=== PATIENT | female | born 1950 | race Caucasian/White ===

== ENCOUNTER 2019-03-21 08:32 | Outpatient (CLI) | payer MEDICARE, OTHER, SELFPAY ==
--- NOTE | 2019-03-21 08:54 | XR_ITS ---
WS: [id number] Sacroiliac joints, 3 views, 03/21/2019 Clinical Data: BACK PAIN, ACUTE Comparison: None. Findings: The SI joints are normal in width. No erosion, sclerosis or destruction is seen. There are no fractur es or dislocations. The adjacent visualized pelvis and hips are unremarkable. The pubic symphysis is unremarkable. The hi ps are normal. XR/XR sacroiliac jts m 3V [id number] Impression: Negative SI joints.
== END 2019-03-21 08:33 | disposition home or self-care (01) ==
LOC: RAD 08:41
PROVIDERS: Family Provider Family Medicine; PCP Family Medicine; Visit Provider Family Medicine
DX: M54.89 Other dorsalgia (principal)
CPT/HCPCS: 72202

== ENCOUNTER 2019-03-29 10:43 | Outpatient (CLI) | payer MEDICARE, OTHER, SELFPAY ==
--- NOTE | 2019-03-29 11:04 | XR_ITS ---
WS: [id number] DEXA (DUAL ENERGY X-RAY ABSORPTIOMETRY) Bone mineral density was performed using a [employer] machine. HISTORY: OSTEOPOROSIS, BACK PAIN COMPARISON: 05/08/2014 Lumbar spine BMD (L1-L4): 0.931 g/cm2 T score: -2.1 Z score: -0.1 Total hip BMD: Left: 0.640 g/cm2. T score: -2.9 Z score: -1.2 Right: 0.659 g/cm2. T score: -2.8 Z score: -1.1 10 year probability of a major osteoporotic fracture is 16%. Compared to the prior study from 05/08/2014. Lumbar spine bone mineral density has increased by 1.7%. Bilateral hips bone mineral density has decrease by 4.1%. XR/XR DEXA axial skeleton* 10381 IMPRESSION: OSTEOPOROSIS based upon the WHO classification for females. Significant decrease in bone mineral density within the hips since the prior st y. No significant change in the lumbar spine bone mineral density.
== END 2019-03-29 10:44 | disposition home or self-care (01) ==
LOC: RADWPI 10:50
PROVIDERS: Family Provider Family Medicine; PCP Family Medicine; Visit Provider Family Medicine
DX: M81.0 Age-related osteoporosis without current pathological fracture (principal); Z78.0 Asymptomatic menopausal state; M54.9 Dorsalgia, unspecified
CPT/HCPCS: 77080

== ENCOUNTER 2019-07-10 11:08 | Emergency (ER) | payer MEDICARE, OTHER, SELFPAY ==
--- NOTE | 2019-07-10 11:14 | XR_ITS ---
WS: [id number] XR ankle RT min 3V* [id number] REASON FOR EXAM: injury FINDINGS: The ankle mortise was normal. No definite fractures of the tibia, fibula, or talus. There is marked soft tissue swelling over the lateral malleolus. The posterior shelf of the tibia was normal. XR/XR ankle RT min 3V* [id number] IMPRESSION: Marked soft tissue swelling of the ankle. Laterally
[2019-07-10 11:19] VITALS: BP 209/107; PULSE 67; RESP 17; TEMP 37.3; O2SAT 95; BMI 23.8
--- NOTE | 2019-07-10 11:23 | W.ED.FALL ---
HPI - Fall General: Chief Complaint: Extremity Injury, Lower Stated Complaint: RIGHT ANKLE PAIN Time Seen by Provider: 07/10/19 11:18 Source: patient Mode of arrival: ambulatory Limitations: no limitations History of Present Illness: HPI Narrative: 69-year-old female who states she tripped while outside cleaning her porch. She states she twisted her right ankle and has quite a bit of swelling that ankle along with pain. States her pain is sharp in nature and rates it a 7 out of 10. Denies any other injuries. MD complaint: fall Onset (ago): hour(s) Fall witnessed: no Place fall occurred: home Loss of consciousness: None Symptoms prior to fall: none Context: tripped/slipped Associated symptoms-after fall: Denies abdominal pain, chest pain or headache(s) Review of Systems Const: Denies: fever(s), chills, body aches or change in appetite Eyes: Denies: blurry vision or eye discomfort ENMT: Denies: throat pain or dental pain Card: Denies: chest pain Resp: Denies: dyspnea GI: Denies: abdominal pain, nausea, vomiting or diarrhea : Denies: dysuria Musc: Reports: joint pain Skin/Breast: Denies: rash Neuro: Denies: headache(s) Psych: Denies: depression Sinan/Lymph: Denies: easy bruising All/Imm: Denies: urticaria PFSH ED PFSH: Social History Smoking and tobacco status: never smoked Physical Exam Const: COMMON NORMALS: no acute distress, patient oriented x3 and healthy appearing HENMT: COMMON NORMALS: normocephalic and atraumatic HEAD & SCALP: normocephalic and atraumatic Eye: COMMON NORMALS: Equal, round and reactive pupils present and EOMs intact bilaterally PUPIL: Yes Equal, round and reactive pupils present Neck/C-Spine: COMMON NORMALS: full ROM and supple Chest: COMMONS NORMALS: normal inspection of the chest and normal palpation of entire chest wall Resp: COMMON NORMALS: normal respiratory effort, No retractions, No use of accessory muscles and clear to auscultation bilaterally AUSCULTATION: clear to auscultation bilaterally Cardio: COMMON NORMALS: regular rate, regular rhythm and No murmurs present (Cardio) RATE: regular rate RHYTHM: regular rhythm GI: COMMON NORMALS: Normal to inspection, nondistended, normoactive bowel sounds present, Soft to palpation, non-tender and no masses PALPATION: Yes Soft to palpation Extremity: COMMON NORMALS: full ROM NARRATIVE EXTREMITY EXAM: Tenderness over right lateral ankle with swelling distal pulses intact Neuro: COMMON NORMALS: patient oriented x3, moves all extremities and no focal motor deficits Psych: COMMON NORMALS: mental status grossly normal, Normal thought process present and cooperative THOUGHT PROCESS: Normal thought process present Skin: COMMON NORMALS: no rashes or lesions noted and no wounds GENERAL SKIN EXAM: no rashes or lesions noted Course Vital Signs: Vital signs: Vital Signs Temperature 99.1 F 07/10/19 11:19 Pulse Rate 67 07/10/19 11:19 Respiratory Rate 17 07/10/19 11:19 Blood Pressure 209/107 07/10/19 11:19 Pulse Oximetry 95 07/10/19 11:19 MDM - Fall MDM Narrative: Medical decision making narrative: Patient presents here with an ankle sprain from a fall. Patient is quite tender and is unable to ambulate. Will place patient in a splint and she is to be nonweightbearing and follow-up with orthopedics. She is to return to the ER if worsening. She understands and agrees to the plan. Imaging Data^: X-ray right ankle: Attestation: I personally reviewed and interpreted this imaging study as follows: Radiologist's impression: Soft tissue swelling noted no obvious fracture Discharge Plan Discharge Patient Disposition: Home, Self-Care Clinical Impression: Ankle sprain and strain Condition: Stable Prescriptions: No Action clopidogrel 75 mg tablet 75 mg PO QDAY 90 Days Qty: 90 RF: 3 metoprolol tartrate 25 mg tablet 25 mg PO BID Qty: 180 RF: 3 lisinopril 20 mg tablet 20 mg PO BID Qty: 180 RF: 3 Discharge Orders: Discharge Order (Routine); Ordered 07/10/19 Ordered By: Milton Timmons Referrals: Corina Singletary MD [Physician] - 4-7 days Donovan Sprague MD [Primary Care Provider] - Discharge Diet: Advance as tolerated Discharge Activity: Resume usual activity Patient Instructions: Ankle Sprain (ED) Coding Level of Care Code ED Asphalt Paving Superintendent for g Fwd Exam Comprehensive
[2019-07-10] MEDS: HYDROcodone-acetaminophen 7.5-325 mg Tablet 1 TAB PO (12:15)
[2019-07-10 13:22] VITALS: BP 147/52; PULSE 63; RESP 18; O2SAT 94
--- NOTE | 2019-07-12 14:36 | DCPLANNER ---
manager rn case had message to schedule a follow up appointment for patient with ortho. manager rn case called the ortho clinic, spoke with Ne, gave clinic patients information. manager rn case was told that patients information would be printed and reviewed. Clinic will call major case detective and patient with appointment information.
--- NOTE | 2019-07-13 08:49 | DCPLANNER ---
Patient had an appointment scheduled for 07.13.19 with ortho, appointment has been cancelled.
== END 2019-07-10 13:26 | disposition home or self-care (01) ==
PROVIDERS: Emergency Provider Emergency Medicine; PCP Family Medicine
DX: S93.401A Sprain of unspecified ligament of right ankle, initial encounter (principal); S96.911A Strain of unspecified muscle and tendon at ankle and foot level, right foot, initial encounter; W18.40XA Slipping, tripping and stumbling without falling, unspecified, initial encounter; Z79.02 Long term (current) use of antithrombotics/antiplatelets
CPT/HCPCS: 12345; 29515; 73610; 99281; 99283

== ENCOUNTER 2019-07-17 15:35 | Outpatient (CLI) | payer MEDICARE, OTHER, SELFPAY ==
--- NOTE | 2019-07-17 15:48 | XR_ITS ---
WS: [id number] ANKLE RIGHT TECHNIQUE: 2 views of the right ankle CLINICAL INFORMATION: ANKLE PAIN RIGHT COMPARISON: July 10, 2019 FINDINGS: Moderate diffuse soft tissue edema. Well-corticated avulsion about the lateral malleolus likely chron ic. Normal talar dome. Partially visualized fracture involving the base of the fifth metatarsal. This can be further evaluated with foot radiographs. XR/XR ankle RT 2V [id number] IMPRESSION: 1. Moderate diffuse soft tissue edema. 2. Partially visualized fracture involving the base of the fifth metatarsal. T his is incompletely evaluated and recommend foot radiographs. 3. Well-corticated avulsion about the tip of the lateral malleolus unchanged.
== END 2019-07-17 15:36 | disposition home or self-care (01) ==
LOC: RADWPI 15:41
PROVIDERS: Family Provider Family Medicine; PCP Family Medicine; Visit Provider Family Medicine
DX: M25.571 Pain in right ankle and joints of right foot (principal); S92.351A Displaced fracture of fifth metatarsal bone, right foot, initial encounter for closed fracture; X58.XXXA Exposure to other specified factors, initial encounter
CPT/HCPCS: 73600

== ENCOUNTER → 2019-07-20 11:54 | Outpatient (BNVA) | payer MEDICARE, OTHER, SELFPAY | PROVIDERS: Family Provider Family Medicine; PCP Family Medicine; Referring Provider Family Medicine; Visit Provider Orthopaedic Surgery | DX: S92.351A Displaced fracture of fifth metatarsal bone, right foot, initial encounter for closed fracture (principal); X58.XXXA Exposure to other specified factors, initial encounter | CPT/HCPCS: 73630 ==

== ENCOUNTER 2019-07-20 13:20 | Outpatient (CLI) | payer MEDICARE, OTHER, SELFPAY | END 2019-07-20 13:21 | disposition home or self-care (01) | LOC: SPT 13:24 | PROVIDERS: Family Provider Family Medicine; PCP Family Medicine; Visit Provider Orthopaedic Surgery | DX: Z46.89 Encounter for fitting and adjustment of other specified devices (principal); S92.351D Displaced fracture of fifth metatarsal bone, right foot, subsequent encounter for fracture with routine healing; X58.XXXD Exposure to other specified factors, subsequent encounter; S92.351A Displaced fracture of fifth metatarsal bone, right foot, initial encounter for closed fracture; X58.XXXA Exposure to other specified factors, initial encounter | CPT/HCPCS: 73630; 97760; L4361 ==

== ENCOUNTER → 2019-08-17 09:07 | Outpatient (BNVA) | payer MEDICARE, OTHER, SELFPAY | PROVIDERS: Family Provider Family Medicine; PCP Family Medicine; Visit Provider Orthopaedic Surgery | DX: S92.351A Displaced fracture of fifth metatarsal bone, right foot, initial encounter for closed fracture (principal); S93.401A Sprain of unspecified ligament of right ankle, initial encounter; X58.XXXA Exposure to other specified factors, initial encounter | CPT/HCPCS: 73630 ==

== ENCOUNTER → 2019-09-14 10:07 | Outpatient (BNVA) | payer MEDICARE, OTHER, SELFPAY | PROVIDERS: Family Provider Family Medicine; PCP Family Medicine; Visit Provider Orthopaedic Surgery | DX: S92.351A Displaced fracture of fifth metatarsal bone, right foot, initial encounter for closed fracture (principal); S93.401A Sprain of unspecified ligament of right ankle, initial encounter | CPT/HCPCS: 73630 ==

== ENCOUNTER → 2020-03-04 15:11 | Outpatient (BNVA) | payer MEDICARE, OTHER, SELFPAY | PROVIDERS: Family Provider Family Medicine; PCP Family Medicine; Visit Provider Internal Medicine Cardiovascular Disease | DX: I25.10 Atherosclerotic heart disease of native coronary artery without angina pectoris (principal); E78.5 Hyperlipidemia, unspecified | CPT/HCPCS: 80053; 80061; 83721; 84443; 85025 ==

== ENCOUNTER 2021-03-25 08:58 | Outpatient (CLI) | payer MEDICARE, OTHER, SELFPAY ==
--- NOTE | 2021-03-25 09:52 | ECG_ITS ---
[facility] Test Date: 2021-03-25 Pat Name: Flor Mcclellan Department: Room: Gender: Female Yield Engineer: : 1950 Requested By: Korin Hirsch Order Number: [id number] Elder MD: Korin Hirsch M.D. Interpretive Statements NAME OF STUDY: LEXISCAN SESTAMIBI STRESS TEST INDICATION: Exertional Shortness of Breath PROCEDURE: At the baseline, the blood pressure was 239/94 mm Hg with a heart rate of 64 bpm. The electrocardiogram showed sinus rhythm, normal axis. Possible old anteroseptal infarct. Non specific ST depression. The Lexiscan was infused over a period of 20 seconds. A total of 0.4 milligrams of Lexiscan was infused. The stress phase was continued for a total of 5 minutes. Heart rate at the end of the stress phase was 90 bpm with a blood pressure of 160/78 mm Hg. The EKG at the peak infusion revealed sinus rhythm with no significant ST-T wave abnormality. The study was terminated due to protocol completion. Patient developed intraprocedural SOB that resolved by discharge. Sestamibi was injected 20 seconds after the Lexiscan infusion. Blood pressure at the end of the recovery phase was 176/73 mm Hg with a heart rate of 87 beats per minute. CONCLUSION: 1. No significant EKG changes with the LexiScan infusion. 2. No LexiScan induced chest pain or cardiac arrhythmia. 3. Baseline hypertension with normal blood pressure and heart rate response. 4. Sestamibi/sestamibi perfusion scan pending; see separate report. Electronically Signed On 04-02-2021 7:16:50 [employer] by Korin Hirsch M.D. [id number]
--- NOTE | 2021-03-25 09:54 | NMCV_ITS ---
NM robert perf SPECT r/s* [id number] Flor Mcclellan Age: 70 Gender: F : 1950 Exam Date: 03/25/2021 10:24 Ordering Phys: Korin Hirsch MD ([email or web address]) Technologist: SUSAN Justin Exam Location: [facility] Indications: CHEST PAIN STRESS TEST Please see separate stress test report in [facility] for full findings IMAGE PROTOCOL Rest/Stress 1 Lexiscan Day Radiopharmaceutical Dose (mCi) Administration Site Administered by Rest: Tc-99m 10.7 IV SUSAN Justin Sestamibi Stress:Tc-99m 32.7 IV SUSAN Justin Sestamibi Rest: 25-Mar-2021 60 Discovery 630 Stress: 25-Mar-2021 30 Discovery 630 0.4mg Lexiscan. Images obtained in supine and prone position. SPECT RESULTS Technical Quality: Excellent Raw Data Analysis: Normal Image Corrections: No attenuation or motion correction applied Summed Stress Score: 1 Summed Rest Score: 3 Summed Difference Score: 0 PERFUSION FINDINGS Very small size perfusion abnormality of mild severity of apical septal wall on rest images with improved tracer uptake in stress images. This is suggestive of attenuation artifact. FUNCTIONAL RESULTS (calculated via Gated SPECT) Stress Image LV EF (%): 88 Stress EDV (mL):56 TID: 1.12 Stress ESV (mL):7 FUNCTIONAL FINDINGS: The left ventricle is normal in size. Transient Ischemia Dilatation of 1.1. There is normal left ventricular systolic function. The left ventricular ejection fraction is hyperdynamic with a value of 88%. There is normal left ventricular wall thickening with no regional wall motion abnormality. Normal end-diastolic and end-systolic volumes. IMPRESSIONS 1. Myocardial perfusion imaging is normal. 2. Overall left ventricular systolic function is normal without regional wall motion abnormalities, LVEF=88%. 3. EKG portion of the study will be reported separately. 4. Scan indicates low risk for cardiac events. Korin Hirsch MD (Electronically Signed) Final Date: 28 March 2021 16:46 S
[2021-03-25 09:56] VITALS: BMI 23.0
[2021-03-25] MEDS: regadenoson 0.4 Mg/5 ml Syringe IVP (10:53)
[2021-03-25 11:09] VITALS: BP 173/79; PULSE 87
== END 2021-03-25 08:59 | disposition home or self-care (01) ==
LOC: RAD 09:03 → CDL 09:49
PROVIDERS: PCP Family Medicine; Visit Provider Internal Medicine Cardiovascular Disease
DX: R06.02 Shortness of breath (principal); R07.9 Chest pain, unspecified
CPT/HCPCS: 78452; 93017; A9500; J2785

== ENCOUNTER → 2021-09-10 13:29 | Outpatient (BNVA) | payer MEDICARE, OTHER, SELFPAY | PROVIDERS: PCP Family Medicine; Visit Provider Internal Medicine Cardiovascular Disease | DX: I25.10 Atherosclerotic heart disease of native coronary artery without angina pectoris (principal); R06.02 Shortness of breath; I10 Essential (primary) hypertension; I25.5 Ischemic cardiomyopathy; E78.5 Hyperlipidemia, unspecified; I25.2 Old myocardial infarction; Z98.61 Coronary angioplasty status; Z86.73 Personal history of transient ischemic attack (TIA), and cerebral infarction without residual deficits; Z78.9 Other specified health status | CPT/HCPCS: 99214 ==

== ENCOUNTER 2023-01-14 10:11 | Emergency (ER) | payer MEDICARE, OTHER, SELFPAY ==
[2023-01-14] VITALS (7 sets, daily range): BP systolic 146–169; BP diastolic 50–70; PULSE 53–56; RESP 17–20; TEMP 36.8; O2SAT 93–96; BMI 28.3
--- NOTE | 2023-01-14 10:16 | XR_ITS ---
WS: [id number] Portable AP upright chest, 01/14/2023 Clinical Data: weakness Comparison: Portable chest, 09/18/2012 Findings: No nodules, masses or effusions are seen. There is a minimal patchy opacity over the surfac e of the lateral left diaphragm which could indicate pneumonia and/or atelectasis. The heart is chichi l. The pulmonary vascularity is not increased. No pneumonia or pneumothorax is seen. The aortic arch and descending thoracic aorta show calcification. There are monitor leads on the chest wall. Impression: 1. Minimal patchy opacity over the surface of left lateral diaphragm. 2. Atherosclerosis.
--- NOTE | 2023-01-14 10:16 | CT_ITS ---
WS: [id number] CT HEAD NONCONTRAST HISTORY: weakness TECHNIQUE: Contiguous axial imaging performed through the brain in 2.5 mm imaging. Bone and soft tiss ue windows. Sagittal and coronal reformats reviewed. All CT scans at [facility] use at least one of these dose optimization techniques: automated exposure control; mA and/or kV adjustment per pa tient size (includes targeted exams where dose is matched to clinical indication); or iterative recon struction. DLP: 1272.87 mGy.cm COMPARISON: 06/13/2016 No acute intracranial hemorrhage, midline shift or mass effect. Moderate atrophy and small vessel ischemic disease. Ventricles: Mild ventricular enlargement. No intra displacement the cerebellar tonsils. Paranasal sinuses: Mucoperiosteal thickening throughout the paranasal sinuses. Mastoid air cells: Well pneumatized. Calvarium and scalp: Skull is intact with no soft tissue edema or swelling. IMPRESSION: 1. No acute intracranial hemorrhage or edema. 2. Moderate atrophy and small vessel ischemic disease. 3. Pansinusitis.
--- NOTE | 2023-01-14 10:17 | ECG_ITS ---
[facility] Test Date: 2023-01-14 Pat Name: Flor Mcclellan Department: Room: Gender: Female Donkey Ride Operator: : 1950 Requested By: Milton Timmons Order Number: [id number] Elder MD: Reilly Hobbs M.D. Measurements Intervals [place] Rate: 54 P: 30 [place]: 220 QRS: -11 QRSD: 97 T: 6 QT: 476 QTc: 453 Interpretive Statements SINUS BRADYCARDIA WITH FIRST DEGREE AV BLOCK INCOMPLETE RIGHT BUNDLE BRANCH BLOCK [90+ ms QRS DURATION, TERMINAL R IN V1/V2, 40+ ms S IN I/aVL/V4/V5/V6] No previous ECG available for comparison Electronically Signed On 01-14-2023 14:38:04 COMMERCIAL PORTFOLIO MANAGER by Reilly Hobbs M.D. [id number]
--- NOTE | 2023-01-14 10:26 | ED_ITS ---
HPI - Altered Mental Status 2 General: Chief Complaint: Altered Mental Status Stated Complaint: ams Time Seen by Provider: 01/14/23 10:13 Source: EMS Mode of arrival: EMS Limitations: altered mental status History of Present Illness: 72-year-old female who has a history of dementia along with strokes here from director of emergency nursing found her in the bathroom this morning laying on the floor. Patient currently is able to follow commands with me she is able to tell me her name does not know where she is or the time. Not seeing any focal deficits she does have COVID currently Review of Systems 2 General: Reports: ROS unobtainable due to mental status PFSH ED 2 PFSH: Medical History DJD (degenerative joint disease), lumbar CVA (cerebral vascular accident) ASHD (arteriosclerotic heart disease) Cardiomyopathy Myocardial infarction Dyslipidemia HTN (hypertension) Statin intolerance Surgical History S/P appendectomy S/P PTCA (percutaneous transluminal coronary angioplasty) Family History Father , AGE 67 Stroke Sister Myocardial infarction Status cardiac pacemaker Other CAD (coronary artery disease) Social History Smoking and tobacco/nicotine status: never used tobacco/nicotine Alcohol intake: never Substance/Drug Use: never Physical Exam 2 Const: COMMON NORMALS: alert; negative for patient oriented x3 ORIENTATION/CONSCIOUSNESS: Yes oriented to person; not oriented to place and not oriented to time HENMT: COMMON NORMALS: normocephalic and atraumatic HEAD & SCALP: n ormocephalic and atraumatic Eye: COMMON NORMALS: Equal, round and reactive pupils present and EOMs intact bilaterally PUPIL: Yes Equal, round and reactive pupils present Neck/C-Spine: COMMON NORMALS: full ROM and supple Chest: COMMONS NORMALS: normal inspection of the chest and normal palpation of entire chest wall Resp: COMMON NORMALS: normal respiratory effort, No retractions, No use of accessory muscles and clear to auscultation bilaterally AUSCULTATION: clear to auscultation bilaterally Cardio: COMMON NORMALS: regular rate, regular rhythm and No murmurs present (Cardio) RATE: regular rate RHYTHM: regular rhythm GI: COMMON NORMALS: Normal to inspection, nondistended, normoactive bowel sounds present, Soft to palpation, non-tender and no masses PALPATION: Yes Soft to palpation Extremity: COMMON NORMALS: normal to inspection and full ROM Neuro: COMMON NORMALS: moves all extremities and no focal motor deficits; negative for patient oriented x3 SENSORIUM/ORIENTATION: Yes alert, Yes oriented to person, No oriented to place and No oriented to time CRANIAL NERVES: Yes CN normal except as noted MOTOR EXAM: 5/5 motor strength present throughout Psych: COMMON NORMALS: mental status grossly normal, Normal thought process present and cooperative THOUGHT PROCESS: Normal thought process present Skin: COMMON NORMALS: no rashes or lesions noted and no wounds GENERAL SKIN EXAM: no rashes or lesions noted Course 2 Vital Signs: Vital signs: Vital Signs Temperature 98.3 F 01/14/23 10:14 Pulse Rate 54 L 01/14/23 11:52 Respiratory Rate 20 H 01/14/23 11:52 Blood Pressure 169/61 01/14/23 11:52 Pulse Oximetry 93 01/14/23 11:52 Oxygen Delivery Me thod Room Air 01/14/23 10:14 MDM - Altered Mental Status Medical Decision Making Patient presents here with falls and generalized weakness she has been well- appearing here at her baseline blood work head CT are all normal she does have COVID she is stable for discharge back to [facility] return if worsening. Medical Records I reviewed the patient's medical records. Lab Data I reviewed the patient's lab results. 01/14/23 11:05 01/14/23 11:05 Laboratory Results WBC 11.53 10^3/uL (3.29-11.43) H 01/14/23 11:05 RBC 4.41 10^6/uL (3.85-5.65) 01/14/23 11:05 Hgb 13.30 g/dL (11.27-16.99) 01/14/23 11:05 Hct 40.0 % (36-47) 01/14/23 11:05 MCV 90.7 fl (85-98) 01/14/23 11:05 MCH 30.2 pg (27-33) 01/14/23 11:05 MCHC 33.3 g/dL (30-55) 01/14/23 11:05 RDW 12.9 % (12.1-15.1) 01/14/23 11:05 Plt Count 241 10^3/cmm (157-399) 01/14/23 11:05 MPV 10.1 fL (7.4-10.4) 01/14/23 11:05 Neut % (Auto) 79.4 % 01/14/23 11:05 Lymph % (Auto) 12.4 % 01/14/23 11:05 [place] % (Auto) 7.3 % 01/14/23 11:05 Eos % (Auto) 0.3 % 01/14/23 11:05 Baso % (Auto) 0.3 % 01/14/23 11:05 Neut # (Auto) 9.15 10^3/uL (1.8-7.7) H 01/14/23 11:05 Lymph # (Auto) 1.4 10^3/uL (0.8-4.8) 01/14/23 11:05 [place] # (Auto) 0.8 10^3/uL (0.2-0.9) 01/14/23 11:05 Eos # (Auto) 0.0 10^3/uL (0.0-0.8) 01/14/23 11:05 Baso # (Auto) 0.0 10^3/uL (0.0-0.1) 01/14/23 11:05 Nucleated RBC % (auto) 0 % 01/14/23 11:05 Nucleated RBCs # 0.0 /100WBC 01/14/23 11:05 Sodium 143 mmol/L (136-145) 01/14/23 11:05 Potassium 3.4 mmol/L (3.5-5.1) L 01/14/23 11:05 Chloride 109 mmol/L (98-107) H 01/14/23 11:05 Carbon Dioxide 25 mmol/L (22-29) 01/14/23 11:05 Anion Gap 12.4 (5-19) 01/14/23 11:05 BUN 11 mg/dL (8-23) 01/14/23 11:05 Creatinine 0.4 mg/dL (0.5-0.9) L 01/14/23 11:05 GFR Calculation Not Reportable 01/14/23 11:05 Glucose 106 mg/dL (65-115) 01/14/23 11:05 POC Glucose 90 mg/dL (70-110) 01/14/23 10:31 Calculated Osmolality 296 mOsm/kg (285-295) H 01/14/23 11:05 Calcium 9.0 mg/dL (8.5-10.5) 01/14/23 11:05 Magnesium 1.9 mg/dL (1.7-2.3) 01/14/23 11:05 Total Bilirubin 0.6 mg/dL (0.15-1.2) 01/14/23 11:05 AST 10 U/L (0-32) 01/14/23 11:05 ALT 8 U/L (0-33) 01/14/23 11:05 Alkaline Phosphatase 61 U/L (35-105) 01/14/23 11:05 Creatine Kinase 21 U/L (26-192) L 01/14/23 11:05 Total Protein 5.8 g/dL (6.6-8.7) L 01/14/23 11:05 Albumin 3.4 g/dL (3.5-5.2) L 01/14/23 11:05 Globulin 2.4 g/dL (1.3-4.6) 01/14/23 11:05 TSH 1.57 uIU/mL (0.27-4.20) 01/14/23 11:05 Urine Color Colorless (Yellow) 01/14/23 10:30 Urine Appearance Clear (CLEAR) 01/14/23 10:30 Urine pH 6 (5-7) 01/14/23 10:30 Ur Specific Hale 1.010 (1.005-1.030) 01/14/23 10:30 Urine Protein Neg (Negative) 01/14/23 10:30 Urine Glucose (UA) Norm (Normal) 01/14/23 10:30 Urine Ketones Negative (Negative) 01/14/23 10:30 Urine Blood Neg (Negative) 01/14/23 10:30 Urine Nitrate Negative (Negative) 01/14/23 10:30 Urine Bilirubin Neg (Negative) 01/14/23 10:30 Urine Urobilinogen Norm mg/dL (Negative) 01/14/23 10:30 Ur Leukocyte Esterase Negative (Negative) 01/14/23 10:30 All radiology interpretation(s) finalized by discharge EKG Data EKG 1: I personally reviewed and interpreted this EKG as follows: EKG interpretation date: 01/14/23 EKG interpretation time: 10:17 Interpretation: sinus nadine hr [address] or t wave abnormalities qrs 97 qtc 462 Discharge Plan Discharge Patient Disposition: Home Clinical Impression: Generalized weakness, Fall Prescriptions: No Action calcium carbonate-vitamin D3 600 mg(1,500mg) -200 unit tablet 1 tab PO DAILY garlic 1,000 mg capsule 1,000 mg PO DAILY clopidogrel 75 mg tablet 75 mg PO QDAY Qty: 90 3RF Tylenol 325 mg Tablet 325 mg PO QID PRN (Reason: Pain or temp) Imodium A-D 2 mg Tablet 4 mg PO BID PRN (Reason: Diarrhea) Rx Instructions: administer after each loose stool until symptoms controlled; do not exceed 8 mg per 24 hrs amlodipine 5 mg tablet 5 mg PO DAILY Aspir-81 81 mg Tablet,Delayed Release (Dr/Ec) 81 mg PO DAILY nitroglycerin 0.4 mg Tablet, Sublingual 0.4 mg SUBLINGUAL Q5M PRN (Reason: Chest Pain) Rx Instructions: do not exceed 3 doses per episode Mylanta 200-200-20 mg/5 mL Suspension 30 ml PO Q2H PRN (Reason: Indigestion) Rx Instructions: administer between meals and at bedtime ondansetron 4 mg Tablet,Disintegrating 4 mg PO Q8H PRN (Reason: Nausea) multivitamin with iron Tablet 1 tab PO DAILY magnesium oxide 400 mg magnesium Tablet 400 mg PO DAILY metoprolol tartrate 25 mg tablet 50 mg PO DAILY Discharge Orders: Discharge ED (Routine); Ordered 01/14/23 Ordered By: Milton Timmons Referrals: Donovan Sprague MD [Primary Care Provider] - 1-3 days Discharge Diet: Advance as tolerated Discharge Activity: Resume usual activity Patient Instructions: Acute Nausea and Vomiting (ED) Coding Level of Care Code ED Quality Assurance Practice Manager for Jone Santiago
[2023-01-14] MEDS: sodium chloride 0.9% 1,000 ML 999 ML IV (10:27)
[2023-01-14 10:38] LABS: Glucose Point of Care 90 mg/dL (70-110)
[2023-01-14 10:45] LABS: Add Urine Microscopic? NO; Charge for UA Resulting for Rev
--- NOTE | 2023-01-14 10:54 | PC.NURSE ---
PER [facility] NURSE PT LAST KNOWN NORMAL FOR SPEECH WAS 0700. NO SLURRED SPEECH NOTED. NO FACIAL DROOP NOTED. NO FACIAL ASYMMETRY NOTED.
[2023-01-14 10:57] LABS: Urine Appearance Clear (CLEAR); Urine Color Colorless (Yellow); pH Urine 6 (5-7)
[2023-01-14 10:58] LABS: Bilirubin Urine Neg (Negative); Blood Urine Neg (Negative); Glucose Urine UA Norm (Normal); Ketones Urine Negative (Negative); Leukocyte Esterase Urine Negative (Negative); Nitrate Urine Negative (Negative); Protein Urine Neg (Negative); Urobilinogen Urine Norm (Negative)
--- NOTE | 2023-01-14 11:11 | PC.NURSE ---
PT ABLE TO RAISE BOTTOM TO APPLY BEDPAN
[2023-01-14 11:14] LABS: Basophils % 0.3 %; Eosinophils % 0.3 %; Lymphocytes # 1.4 10^3/uL (0.8-4.8); Lymphocytes % 12.4 %; Mean Corpuscular HGB Conc 33.3 g/dL (30-55); Mean Corpuscular Hemoglobin 30.2 pg (27-33); Mean Corpuscular Volume 90.7 fl (85-98); Mean Platelet Volume 10.1 fL (7.4-10.4); Monocytes # 0.8 10^3/uL (0.2-0.9); Monocytes % 7.3 %; Neutrophils # 9.15 10^3/uL (1.8-7.7); Neutrophils % 79.4 %; Nucleated Red Blood Cells % 0 %; Platelet Count 241 10^3/cmm (157-399); Red Blood Count 4.41 10^6/uL (3.85-5.65); Red Cell Distribution Width 12.9 % (12.1-15.1); White Blood Count 11.53 10^3/uL (3.29-11.43)
[2023-01-14 11:41] LABS: Alanine Aminotransferase 8 U/L (0-33); Albumin Level 3.4 g/dL (3.5-5.2); Alkaline Phosphatase 61 U/L (35-105); Anion Gap 12.4 (5-19); Aspartate Amino Transferase 10 U/L (0-32); Blood Urea Nitrogen 11 mg/dL (8-23); Carbon Dioxide 25 mmol/L (22-29); Chloride 109 mmol/L (98-107); Creatine Phosphokinase 21 U/L (26-192); Globulin 2.4 g/dL (1.3-4.6); Glucose 106 mg/dL (65-115); Magnesium 1.9 mg/dL (1.7-2.3); Osmolality Calculated 296 mOsm/kg (285-295); Potassium 3.4 mmol/L (3.5-5.1); Sodium 143 mmol/L (136-145); Thyroid Stimulating Hormone 1.57 uIU/mL (0.27-4.20); Total Bilirubin 0.6 mg/dL (0.15-1.2); Total Protein 5.8 g/dL (6.6-8.7)
== END 2023-01-14 13:42 | disposition home or self-care (01) ==
PROVIDERS: Emergency Provider Emergency Medicine; PCP Family Medicine
DX: R53.1 Weakness (principal); Z79.02 Long term (current) use of antithrombotics/antiplatelets; Z79.82 Long term (current) use of aspirin; Z86.73 Personal history of transient ischemic attack (TIA), and cerebral infarction without residual deficits; I11.9 Hypertensive heart disease without heart failure; I43 Cardiomyopathy in diseases classified elsewhere; I25.2 Old myocardial infarction; E78.5 Hyperlipidemia, unspecified
CPT/HCPCS: 36415; 36416; 70450; 71045; 80053; 81003; 82550; 82962; 83735; 84443; 85025; 93005; 96360; 96361; 99285; J7030

== ENCOUNTER 2024-04-16 16:57 | Inpatient (IN) | payer MEDICARE, OTHER, SELFPAY ==
[2024-04-16] VITALS (10 sets, daily range): BP systolic 119–165; BP diastolic 68–90; PULSE 76–106; RESP 16–20; TEMP 36.7–38; O2SAT 93–97; BMI 24.0
--- NOTE | 2024-04-16 17:37 | XRR_ITS ---
PROCEDURE INFORMATION: Exam: XR Chest Exam date and time: 04/16/2024 5:51 PM Age: 74 years old Clinical indication: Other: Possible sepsis; Prior surgery; Surgery date: 6+ months; Surgery type: Ptca TECHNIQUE: Imaging protocol: Radiologic exam of the chest. Views: 1 view. COMPARISON: CR XR chest 1V portable [id number] 01/14/2023 10:37 AM FINDINGS: Lungs: Mild left basilar airspace disease. Pleural spaces: There is a small left pleural effusion. Heart/Mediastinum: Heart is normal in size. Bones/joints: There is generalized osteopenia. XR/XR chest 1V portable [id number] IMPRESSION: Small left pleural effusion with mild left basilar airspace disease which may represent pneumonitis and or volume loss.
--- NOTE | 2024-04-16 17:39 | CTR_ITS ---
PROCEDURE INFORMATION: Exam: CT Cervical Spine Without Contrast Exam date and time: 04/16/2024 5:01 PM Age: 74 years old Clinical indication: Injury or trauma; Blunt trauma; EMS arrival for fall. Patient found down on floor. History of dementia. C collar in place. TECHNIQUE: Imaging protocol: Computed tomography of the cervical spine without contrast. Radiation optimization: All CT scans at this facility use at least one of these dose optimization techniques: automated exposure control; mA and/or kV adjustment per patient size (includes targeted exams where dose is matched to clinical indication); or iterative reconstruction. COMPARISON: CT head wo con* [id number] 01/14/2023 10:41 AM RADIATION DOSE METRICS: Total DLP (mGy-cm): 153.2 FINDINGS: Bones: Straightening and reversal of the normal cervical lordosis. 2-3 mm of anterolisthesis of C4 on C5. Alignment is otherwise intact. No evidence of acute fracture. Mild multilevel degenerative change. Lungs: Lung apices are normal. Soft tissues: The soft tissues are within normal limits. CT/CT cervical spin wo con* [id number] IMPRESSION: No evidence of acute fracture.
--- NOTE | 2024-04-16 17:39 | CTR_ITS ---
PROCEDURE INFORMATION: Exam: CT Head Without Contrast Exam date and time: 04/16/2024 5:01 PM Age: 74 years old Clinical indication: Injury or trauma; Blunt trauma (contusions or hematomas); Consciousness not specified; Injury details: EMS arrival for fall. Patient found down on floor. History of dementia. C collar in place. TECHNIQUE: Imaging protocol: Computed tomography of the head without contrast. Radiation optimization: All CT scans at this facility use at least one of these dose optimization techniques: automated exposure control; mA and/or kV adjustment per patient size (includes targeted exams where dose is matched to clinical indication); or iterative reconstruction. COMPARISON: CT head wo con* [id number] 01/14/2023 10:41 AM RADIATION DOSE METRICS: Total DLP (mGy-cm): 923.6 FINDINGS: Brain: There is vhuj-sf-nkirbjwr cerebral atrophy. There are kmue-wt-[id number] deep white matter microangiopathic ischemic changes. No acute hemorrhage is identified. No mass or mass effect is identified. Cerebral ventricles: Moderately dilated ventricles secondary to atrophy. Paranasal sinuses: Moderate bilateral sphenoidal sinus mucosal thickening. Moderate bilateral anterior ethmoidal and inferior right frontal sinus mucosal disease. Right maxillary mucosal disease. Mastoid air cells: The mastoid air cells are clear. Bones: No acute osseous abnormalities are seen. Soft tissues: The soft tissues are within normal limits. CT/CT head wo con* [id number] IMPRESSION: 1. No acute intracranial pathology. 2. Paranasal sinus disease and stable senescent changes.
--- NOTE | 2024-04-16 17:52 | ECG_ITS ---
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: : 1950 Requested By: Dorcas Poon Order Number: [id number] Reading MD: ESTEBAN ZAMUDIO Measurements Intervals [place] Rate: 93 P: 223 IL: 276 QRS: 67 QRSD: 95 T: 41 QT: 396 QTc: 494 Interpretive Statements ECTOPIC ATRIAL RHYTHM WITH FIRST DEGREE AV BLOCK MODERATE ST DEPRESSION [0.05+ mV ST DEPRESSION] Compared to ECG 01/14/2023 10:17:47 Ectopic atrial rhythm now present ST (T wave) deviation now present Sinus bradycardia no longer present Incomplete right bundle-branch block no longer present Electronically Signed On 04-17-2024 22:22:22 CDT by ESTEBAN ZAMUDIO [email or web address]
--- NOTE | 2024-04-16 18:03 | W.ED.FALL ---
Documented by User: Dorcas Melo MD 04/20/24 16:17 HPI - Fall General: Chief Complaint: Fall Stated Complaint: ams; fall Time Seen by Provider: 04/16/24 17:34 History of Present Illness: This patient is a 74 year old presenting with an unwitnessed fall at her [place]. She has a history of dementia and is normally able to have a simple conversation. By report, she initially was able to speak after her fall, but the became non-verbal. She is awake and makes eye contact now -but does not speak. Family is at the bedside and agree that she is not at baseline. She is on a blood thinner and has a history of stroke as well. She is noted to have a low grade fever here - this had not been noted previously. She also is noted to have a loose cough. Related Data Home Medications ?Medication ?Instructions ?Recorded ?Confirmed calcium 600 mg (as 1 tab PO DAILY 08/30/19 04/17/24 carbonate)-vitamin D3 5 mcg (200 unit) tablet acetaminophen 325 mg tablet 325 mg PO QID PRN Pain or temp 01/14/23 04/17/24 (Tylenol) aluminum-mag hydroxide-simethicone 30 ml PO Q2H PRN Indigestion 01/14/23 04/17/24 200 mg-200 mg-20 mg/5 mL oral susp amlodipine 5 mg tablet 5 mg PO DAILY 01/14/23 04/17/24 aspirin 81 mg tablet,delayed 81 mg PO DAILY 01/14/23 04/17/24 release loperamide 2 mg tablet (Imodium 4 mg PO BID PRN Diarrhea 01/14/23 04/17/24 A-D) magnesium oxide 400 mg PO DAILY 01/14/23 04/17/24 metoprolol tartrate 25 mg tablet 50 mg PO DAILY 01/14/23 04/17/24 multivitamin with iron 1 tab PO DAILY 01/14/23 04/17/24 nitroglycerin 0.4 mg sublingual 0.4 mg sublingual Q5M PRN Chest 01/14/23 04/17/24 tablet Pain ondansetron 4 mg disintegrating 4 mg PO Q8H PRN Nausea 01/14/23 04/17/24 tablet alprazolam 0.25 mg tablet 0.25 mg PO BEDTIME 04/17/24 04/17/24 bisacodyl 10 mg rectal suppository 10 mg FL DAILY PRN Constipation 04/17/24 04/17/24 bisacodyl 5 mg tablet 20 mg PO DAILY PRN Constipation 04/17/24 04/17/24 buspirone 7.5 mg tablet 7.5 mg PO BID 04/17/24 04/17/24 lisinopril 20 mg tablet 20 mg PO BID 04/17/24 04/17/24 magnesium hydroxide 400 mg/5 mL 15 ml PO DAILY PRN Constipation 04/17/24 04/17/24 oral suspension (Milk of Magnesia) metoprolol tartrate 25 mg tablet 25 mg PO BEDTIME 04/17/24 04/17/24 polyethylene glycol 3350 17 gram 17 g PO DAILY PRN Constipation 04/17/24 04/17/24 oral powder packet (Miralax) Previous Rx's ?Medication ?Instructions ?Recorded clopidogrel 75 mg tablet 75 mg PO QDAY #90 tabs 05/02/21 cefdinir 300 mg capsule 300 mg PO BID 7 days #14 caps 04/18/24 Allergies Allergy/AdvReac Type Severity Reaction Status Date / Time simvastatin Allergy ADR-Fatigue Verified 04/17/24 00:08 d Sulfa (Sulfonamide Allergy rash all Verified 04/17/24 00:08 Antibiotics) over my body PFSH ED PFSH: Medical History DJD (degenerative joint disease), lumbar CVA (cerebral vascular accident) ASHD (arteriosclerotic heart disease) Cardiomyopathy Myocardial infarction Dyslipidemia HTN (hypertension) Statin intolerance Surgical History S/P appendectomy S/P PTCA (percutaneous transluminal coronary angioplasty) Family History Father , AGE 67 Stroke Sister Myocardial infarction Status cardiac pacemaker Other CAD (coronary artery disease) Social History Smoking and tobacco/nicotine status: never used tobacco/nicotine Alcohol intake: never Substance/Drug Use: never Physical Exam Const: COMMON NORMALS: no acute distress, alert and well nourished GENERAL APPEARANCE: cooperative and comfortable HENMT: HEAD & SCALP: normal to inspection FACE & SINUS: normal facial exam Eye: GENERAL EYE: appearance normal, both eyes and all related structures Neck/C-Spine: COMMON NORMALS: supple, no meningeal signs and no JVD OTHER: c collar in place Chest: COMMONS NORMALS: normal inspection of the chest Resp: COMMON NORMALS: normal respiratory effort, No use of accessory muscles and clear to auscultation bilaterally AUSCULTATION: clear to auscultation bilaterally Cardio: COMMON NORMALS: no JVD, regular rate, regular rhythm and No murmurs present (Cardio) RATE: regular rate RHYTHM: regular rhythm GI: COMMON NORMALS: Normal to inspection, nondistended, normoactive bowel sounds present, Soft to palpation and non-tender INSPECTION: Yes normal to inspection AUSCULTATION: Yes normoactive bowel sounds PALPATION: Yes Soft to palpation Back/Pelvis: COMMON NORMALS: thoracic and lumbar spine normal to inspection Extremity: COMMON NORMALS: normal to inspection Neuro: COMMON NORMALS: moves all extremities, no focal motor deficits and no sensory deficits noted SENSORIUM/ORIENTATION: Yes alert MENINGEAL SIGNS: Yes no meningeal signs OTHER: non verbal - moves all extremities Skin: COMMON NORMALS: no rashes or lesions noted and turgor normal GENERAL SKIN EXAM: no rashes or lesions noted and turgor normal Course Vital Signs: Vital signs: Vital Signs Temperature 99.2 F 04/18/24 11:38 Pulse Rate 80 04/18/24 14:12 Respiratory Rate 16 04/18/24 11:38 Blood Pressure 138/73 04/18/24 14:12 Pulse Oximetry 93 04/18/24 14:12 Oxygen Delivery Me thod Room Air 04/18/24 11:38 MDM - Fall Medical Decision Making Patient is not able to provide history. She was reportedly at baseline this morning but found on the floor around 1:15 this afternoon. She is not speaking and this is different from her baseline. She has a non focal neuro exam at this point. I did not find any areas of tenderness on exam. She is febrile. Work up for stroke or infection, as well as for her fall is underway. Lab Data 04/17/24 02:36 04/18/24 09:42 Radiology Impressions Chest X-Ray 04/16/24 17:37 IMPRESSION: Small left pleural effusion with mild left basilar airspace disease which may represent pneumonitis and or volume loss. Cervical Spine CT 04/16/24 17:39 IMPRESSION: No evidence of acute fracture. Renal Ultrasound 04/17/24 08:25 IMPRESSION: Normal renal ultrasound Head CT 04/17/24 16:00 IMPRESSION: 1. No acute findings noted 2. Cerebral atrophy with chronic ischemic changes noted 3. Pansinusitis ASSESSMENT: ASPECTS ([place]yn[place] Stroke Program Early CT Score) is 10. ADDENDUM: 04/17/24 1640 COMMENT: THIS REPORT CONTAINS FINDINGS THAT MAY BE CRITICAL TO PATIENT CARE. The exam findings were verbally communicated by me to PRABHA BRATXON via telephone conference at 4:38 PM CDT on 04/17/2024. The findings were acknowledged and understood. Laboratory Results WBC 8.34 10^3/uL (3.29-11.43) 04/17/24 02:36 RBC 4.45 10^6/uL (3.85-5.65) 04/17/24 02:36 Hgb 13.20 g/dL (11.27-16.99) 04/17/24 02:36 Hct 39.4 % (36-47) 04/17/24 02:36 MCV 88.5 fl (85-98) 04/17/24 02:36 MCH 29.7 pg (27-33) 04/17/24 02:36 MCHC 33.5 g/dL (30-55) 04/17/24 02:36 RDW 13.0 % (12.1-15.1) 04/17/24 02:36 Plt Count 291 10^3/cmm (157-399) 04/17/24 02:36 MPV 10.1 fL (7.4-10.4) 04/17/24 02:36 Neut % (Auto) 61.3 % 04/17/24 02:36 Lymph % (Auto) 23.3 % 04/17/24 02:36 [place] % (Auto) 14.1 % 04/17/24 02:36 Eos % (Auto) 0.5 % 04/17/24 02:36 Baso % (Auto) 0.4 % 04/17/24 02:36 Neut # (Auto) 5.12 10^3/uL (1.8-7.7) 04/17/24 02:36 Lymph # (Auto) 1.9 10^3/uL (0.8-4.8) 04/17/24 02:36 [place] # (Auto) 1.2 10^3/uL (0.2-0.9) H 04/17/24 02:36 Eos # (Auto) 0.0 10^3/uL (0.0-0.8) 04/17/24 02:36 Baso # (Auto) 0.0 10^3/uL (0.0-0.1) 04/17/24 02:36 Nucleated RBC % (auto) 0 % 04/17/24 02:36 Nucleated RBCs # 0.0 /100WBC 04/17/24 02:36 Sodium 143 mmol/L (136-145) 04/17/24 02:36 Potassium 2.8 mmol/L (3.5-5.1) L* 04/17/24 02:36 Chloride 107 mmol/L (98-107) 04/17/24 02:36 Carbon Dioxide 25 mmol/L (22-29) 04/17/24 02:36 Anion Gap 13.8 (5-19) 04/17/24 02:36 BUN 19 mg/dL (8-23) 04/17/24 02:36 Creatinine 0.7 mg/dL (0.5-0.9) 04/17/24 02:36 GFR Calculation Not Reportable 04/17/24 02:36 Glucose 100 mg/dL (65-115) 04/17/24 02:36 Calculated Osmolality 298 mOsm/kg (285-295) H 04/17/24 02:36 Lactic Acid 1.7 mmol/L (0.5-2.2) 04/16/24 19:01 Calcium 8.9 mg/dL (8.5-10.5) 04/17/24 02:36 Phosphorus 3.6 mg/dL (2.5-4.5) 04/17/24 02:36 Magnesium 2.0 mg/dL (1.7-2.3) 04/17/24 02:36 Total Bilirubin 0.3 mg/dL (0.15-1.2) 04/16/24 19:01 AST 72 U/L (0-32) H 04/16/24 19:01 ALT 23 U/L (0-33) 04/16/24 19:01 Alkaline Phosphatase 66 U/L (35-105) 04/16/24 19:01 C-Reactive Protein 24.4 mg/L (0.0-4.9) H 04/17/24 02:36 Total Protein 6.2 g/dL (6.6-8.7) L 04/16/24 19:01 Albumin 3.5 g/dL (3.5-5.2) 04/16/24 19:01 Globulin 2.7 g/dL (1.3-4.6) 04/16/24 19:01 Vitamin B12 338 pg/mL (232-1245) 04/16/24 19:01 Procalcitonin 0.29 ng/mL (0-0.5) 04/16/24 19: TSH 1.04 uIU/mL (0.27-4.20) 04/16/24 19:01 Urine Color Yellow (Yellow) 04/16/24 18:42 Urine Appearance Turbid (CLEAR) A 04/16/24 18:42 Urine pH 7.0 (5-7) 04/16/24 18:42 Ur Specific [place] 1.022 (1.005-1.030) 04/16/24 18:42 Urine Protein 2+ (Negative) A 04/16/24 18:42 Urine Glucose (UA) Negative (Normal) 04/16/24 18:42 Urine Ketones Trace (Negative) 04/16/24 18:42 Urine Blood 3+ (Negative) A 04/16/24 18:42 Urine Nitrate Negative (Negative) 04/16/24 18:42 Urine Bilirubin Negative (Negative) 04/16/24 18:42 Urine Urobilinogen 1.0 mg/dL (Negative) 04/16/24 18:42 Ur Leukocyte Esterase 2+ (Negative) A 04/16/24 18:42 Urine RBC 11-20 /hpf (0-2) H 04/16/24 18:42 Urine WBC >100 /hpf (0-5) H 04/16/24 18:42 Ur Squamous Epith Cells 10-15 /hpf (0-5) H 04/16/24 18:42 Amorphous Sediment Not Reportable 04/16/24 18:42 Urine Bacteria 4+ /hpf (NONE) H 04/16/24 18:42 Hyaline Casts 45.50 /lpf 04/16/24 18:42 Influenza A (PCR) Negative (Negative) 04/16/24 19:25 Influenza Type B (PCR) Negative (Negative) 04/16/24 19:25 RSV (PCR) Negative (Negative) 04/16/24 19:25 SARS-CoV-2 (PCR) Negative (Negative) 04/16/24 19:25 Discharge Plan Discharge Patient Disposition: Placed in Observation Admit Provider: Belinda Puckett Clinical Impression: Acute UTI, Altered mental status Discharge Diet: Cardiac Discharge Activity: As per PT/OT instructions Coding Level of Care Code ED Human Resource Statistician for Chg Fwd Documented by User: Marvel Trujillo DO 04/17/24 05:12 HPI - Fall General: Chief Complaint: Fall Stated Complaint: ams; fall Time Seen by Provider: 04/16/24 17:34 Related Data Home Medications ?Medication ?Instructions ?Recorded ?Confirmed calcium 600 mg (as 1 tab PO DAILY 08/30/19 04/17/24 carbonate)-vitamin D3 5 mcg (200 unit) tablet acetaminophen 325 mg tablet 325 mg PO QID PRN Pain or temp 01/14/23 04/17/24 (Tylenol) aluminum-mag hydroxide-simethicone 30 ml PO Q2H PRN Indigestion 01/14/23 04/17/24 200 mg-200 mg-20 mg/5 mL oral susp amlodipine 5 mg tablet 5 mg PO DAILY 01/14/23 04/17/24 aspirin 81 mg tablet,delayed 81 mg PO DAILY 01/14/23 04/17/24 release loperamide 2 mg tablet (Imodium 4 mg PO BID PRN Diarrhea 01/14/23 04/17/24 A-D) magnesium oxide 400 mg PO DAILY 01/14/23 04/17/24 metoprolol tartrate 25 mg tablet 50 mg PO DAILY 01/14/23 04/17/24 multivitamin with iron 1 tab PO DAILY 01/14/23 04/17/24 nitroglycerin 0.4 mg sublingual 0.4 mg sublingual Q5M PRN Chest 01/14/23 04/17/24 tablet Pain ondansetron 4 mg disintegrating 4 mg PO Q8H PRN Nausea 01/14/23 04/17/24 tablet alprazolam 0.25 mg tablet 0.25 mg PO BEDTIME 04/17/24 04/17/24 bisacodyl 10 mg rectal suppository 10 mg FL DAILY PRN Constipation 04/17/24 04/17/24 bisacodyl 5 mg tablet 20 mg PO DAILY PRN Constipation 04/17/24 04/17/24 buspirone 7.5 mg tablet 7.5 mg PO BID 04/17/24 04/17/24 lisinopril 20 mg tablet 20 mg PO BID 04/17/24 04/17/24 magnesium hydroxide 400 mg/5 mL 15 ml PO DAILY PRN Constipation 04/17/24 04/17/24 oral suspension (Milk of Magnesia) metoprolol tartrate 25 mg tablet 25 mg PO BEDTIME 04/17/24 04/17/24 polyethylene glycol 3350 17 gram 17 g PO DAILY PRN Constipation 04/17/24 04/17/24 oral powder packet (Miralax) Previous Rx's ?Medication ?Instructions ?Recorded clopidogrel 75 mg tablet 75 mg PO QDAY #90 tabs 05/02/21 cefdinir 300 mg capsule 300 mg PO BID 7 days #14 caps 04/18/24 Allergies Allergy/AdvReac Type Severity Reaction Status Date / Time simvastatin Allergy ADR-Fatigue Verified 04/17/24 00:08 d Sulfa (Sulfonamide Allergy rash all Verified 04/17/24 00:08 Antibiotics) over my body [facility] ED PFSH: Medical History DJD (degenerative joint disease), lumbar CVA (cerebral vascular accident) ASHD (arteriosclerotic heart disease) Cardiomyopathy Myocardial infarction Dyslipidemia HTN (hypertension) Statin intolerance Surgical History S/P appendectomy S/P PTCA (percutaneous transluminal coronary angioplasty) Family History Father , AGE 67 Stroke Sister Myocardial infarction Status cardiac pacemaker Other CAD (coronary artery disease) Social History Smoking and tobacco/nicotine status: never used tobacco/nicotine Alcohol intake: never Substance/Drug Use: never Course Vital Signs: Vital signs: Vital Signs Temperature 99.2 F 04/18/24 11:38 Pulse Rate 80 04/18/24 14:12 Respiratory Rate 16 04/18/24 11:38 Blood Pressure 138/73 04/18/24 14:12 Pulse Oximetry 93 04/18/24 14:12 Oxygen Delivery Me thod Room Air 04/18/24 11:38 MDM - Fall Medical Decision Making Patient is not able to provide history. She was reportedly at baseline this morning but found on the floor around 1:15 this afternoon. She is not speaking and this is different from her baseline. She has a non focal neuro exam at this point. I did not find any areas of tenderness on exam. She is febrile. Work up for stroke or infection, as well as for her fall is underway. Patient spiked a temperature above 101 here. She has turbid urine with greater than 100 whites. White blood cell count is 11.3. She has a small left pleural effusion potentially as well. She is covered with Rocephin for now. Head CT is negative. Cervical spine CT does not reveal a fracture. She is able to say some words at this point after liter of fluid which is an improvement. She will be observed. Lab Data 04/17/24 02:36 04/18/24 09:42 Radiology Impressions Chest X-Ray 04/16/24 17:37 IMPRESSION: Small left pleural effusion with mild left basilar airspace disease which may represent pneumonitis and or volume loss. Cervical Spine CT 04/16/24 17:39 IMPRESSION: No evidence of acute fracture. Renal Ultrasound 04/17/24 08:25 IMPRESSION: Normal renal ultrasound Head CT 04/17/24 16:00 IMPRESSION: 1. No acute findings noted 2. Cerebral atrophy with chronic ischemic changes noted 3. Pansinusitis ASSESSMENT: ASPECTS ([place] Stroke Program Early CT Score) is 10. ADDENDUM: 04/17/24 1640 COMMENT: THIS REPORT CONTAINS FINDINGS THAT MAY BE CRITICAL TO PATIENT CARE. The exam findings were verbally communicated by me to PRABHA BRAXTON via telephone conference at 4:38 PM CDT on 04/17/2024. The findings were acknowledged and understood. Laboratory Results WBC 8.34 10^3/uL (3.29-11.43) 04/17/24 02:36 RBC 4.45 10^6/uL (3.85-5.65) 04/17/24 02:36 Hgb 13.20 g/dL (11.27-16.99) 04/17/24 02:36 Hct 39.4 % (36-47) 04/17/24 02:36 MCV 88.5 fl (85-98) 04/17/24 02:36 MCH 29.7 pg (27-33) 04/17/24 02:36 MCHC 33.5 g/dL (30-55) 04/17/24 02:36 RDW 13.0 % (12.1-15.1) 04/17/24 02:36 Plt Count 291 10^3/cmm (157-399) 04/17/24 02:36 MPV 10.1 fL (7.4-10.4) 04/17/24 02:36 Neut % (Auto) 61.3 % 04/17/24 02:36 Lymph % (Auto) 23.3 % 04/17/24 02:36 [place] % (Auto) 14.1 % 04/17/24 02:36 Eos % (Auto) 0.5 % 04/17/24 02:36 Baso % (Auto) 0.4 % 04/17/24 02:36 Neut # (Auto) 5.12 10^3/uL (1.8-7.7) 04/17/24 02:36 Lymph # (Auto) 1.9 10^3/uL (0.8-4.8) 04/17/24 02:36 [place] # (Auto) 1.2 10^3/uL (0.2-0.9) H 04/17/24 02:36 Eos # (Auto) 0.0 10^3/uL (0.0-0.8) 04/17/24 02:36 Baso # (Auto) 0.0 10^3/uL (0.0-0.1) 04/17/24 02:36 Nucleated RBC % (auto) 0 % 04/17/24 02:36 Nucleated RBCs # 0.0 /100WBC 04/17/24 02:36 Sodium 143 mmol/L (136-145) 04/17/24 02:36 Potassium 2.8 mmol/L (3.5-5.1) L* 04/17/24 02:36 Chloride 107 mmol/L (98-107) 04/17/24 02:36 Carbon Dioxide 25 mmol/L (22-29) 04/17/24 02:36 Anion Gap 13.8 (5-19) 04/17/24 02:36 BUN 19 mg/dL (8-23) 04/17/24 02:36 Creatinine 0.7 mg/dL (0.5-0.9) 04/17/24 02:36 GFR Calculation Not Reportable 04/17/24 02:36 Glucose 100 mg/dL (65-115) 04/17/24 02:36 Calculated Osmolality 298 mOsm/kg (285-295) H 04/17/24 02:36 Lactic Acid 1.7 mmol/L (0.5-2.2) 04/16/24 19:01 Calcium 8.9 mg/dL (8.5-10.5) 04/17/24 02:36 Phosphorus 3.6 mg/dL (2.5-4.5) 04/17/24 02:36 Magnesium 2.0 mg/dL (1.7-2.3) 04/17/24 02:36 Total Bilirubin 0.3 mg/dL (0.15-1.2) 04/16/24 19:01 AST 72 U/L (0-32) H 04/16/24 19:01 ALT 23 U/L (0-33) 04/16/24 19:01 Alkaline Phosphatase 66 U/L (35-105) 04/16/24 19:01 C-Reactive Protein 24.4 mg/L (0.0-4.9) H 04/17/24 02:36 Total Protein 6.2 g/dL (6.6-8.7) L 04/16/24 19:01 Albumin 3.5 g/dL (3.5-5.2) 04/16/24 19:01 Globulin 2.7 g/dL (1.3-4.6) 04/16/24 19:01 Vitamin B12 338 pg/mL (232-1245) 04/16/24 19:01 Procalcitonin 0.29 ng/mL (0-0.5) 04/16/24 19:01 TSH 1.04 uIU/mL (0.27-4.20) 04/16/24 19:01 Urine Color Yellow (Yellow) 04/16/24 18:42 Urine Appearance Turbid (CLEAR) A 04/16/24 18:42 Urine pH 7.0 (5-7) 04/16/24 18:42 Ur Specific [place] 1.022 (1.005-1.030) 04/16/24 18:42 Urine Protein 2+ (Negative) A 04/16/24 18:42 Urine Glucose (UA) Negative (Normal) 04/16/24 18:42 Urine Ketones Trace (Negative) 04/16/24 18:42 Urine Blood 3+ (Negative) A 04/16/24 18:42 Urine Nitrate Negative (Negative) 04/16/24 18:42 Urine Bilirubin Negative (Negative) 04/16/24 18:42 Urine Urobilinogen 1.0 mg/dL (Negative) 04/16/24 18:42 Ur Leukocyte Esterase 2+ (Negative) A 04/16/24 18:42 Urine RBC 11-20 /hpf (0-2) H 04/16/24 18:42 Urine WBC >100 /hpf (0-5) H 04/16/24 18:42 Ur Squamous Epith Cells 10-15 /hpf (0-5) H 04/16/24 18:42 Amorphous Sediment Not Reportable 04/16/24 18:42 Urine Bacteria 4+ /hpf (NONE) H 04/16/24 18:42 Hyaline Casts 45.50 /lpf 04/16/24 18:42 Influenza A (PCR) Negative (Negative) 04/16/24 19:25 Influenza Type B (PCR) Negative (Negative) 04/16/24 19:25 RSV (PCR) Negative (Negative) 04/16/24 19:25 SARS-CoV-2 (PCR) Negative (Negative) 04/16/24 19:25 All radiology interpretation(s) finalized by discharge Discharge Plan Discharge Patient Disposition: Placed in Observation Admit Provider: Belinda Puckett Clinical Impression: Acute UTI, Altered mental status Discharge Diet: Cardiac Discharge Activity: As per PT/OT instructions Coding Level of Care Code ED Human Resource Statistician for Chg Fwd
[2024-04-16] MEDS: sodium chloride 0.9% 1,000 ML 999 ML IV (18:15)
[2024-04-16 19:05] LABS: Bilirubin Urine Negative (Negative); Blood Urine 3+ (Negative); Glucose Urine UA Negative (Normal); Ketones Urine Trace (Negative); Leukocyte Esterase Urine 2+ (Negative); Nitrate Urine Negative (Negative); Protein Urine 2+ (Negative); Specific Gravity, Urine 1.022 (1.005-1.030); Urine Appearance Turbid (CLEAR); Urine Color Yellow (Yellow)
[2024-04-16 19:07] LABS: Basophils % 0.4 %; Lymphocytes % 8.5 %; Mean Corpuscular HGB Conc 32.2 g/dL (30-55); Mean Corpuscular Hemoglobin 29.8 pg (27-33); Mean Corpuscular Volume 92.6 fl (85-98); Mean Platelet Volume 10.4 fL (7.4-10.4); Monocytes # 1.2 10^3/uL (0.2-0.9); Neutrophils # 8.97 10^3/uL (1.8-7.7); Neutrophils % 79.7 %; Nucleated Red Blood Cells % 0 %; Platelet Count 266 10^3/cmm (157-399); Red Blood Count 4.43 10^6/uL (3.85-5.65); Red Cell Distribution Width 12.9 % (12.1-15.1); White Blood Count 11.25 10^3/uL (3.29-11.43)
[2024-04-16 19:10] LABS: Add Urine Microscopic? YES; Bacteria Urine 4+ /hpf; Universal Test for UA Present (0); WBC Urine >100 /hpf (0-5)
[2024-04-16 19:22] LABS: Add Urine Culture? No
[2024-04-16 19:27] LABS: Alanine Aminotransferase 23 U/L (0-33); Albumin Level 3.5 g/dL (3.5-5.2); Alkaline Phosphatase 66 U/L (35-105); Anion Gap 15.5 (5-19); Aspartate Amino Transferase 72 U/L (0-32); Blood Urea Nitrogen 17 mg/dL (8-23); Carbon Dioxide 23 mmol/L (22-29); Chloride 106 mmol/L (98-107); Creatinine Clr Calc Pharmacy 55.8459; Globulin 2.7 g/dL (1.3-4.6); Glucose 123 mg/dL (65-115); Osmolality Calculated 295 mOsm/kg (285-295); Potassium 3.5 mmol/L (3.5-5.1); Sodium 141 mmol/L (136-145); Total Bilirubin 0.3 mg/dL (0.15-1.2); Total Protein 6.2 g/dL (6.6-8.7)
[2024-04-16 19:28] LABS: Lactic Sepsis W/Reflex 1.7 mmol/L (0.5-2.2)
[2024-04-16] MEDS: ketorolac 30 mg/mL INJ 15 MG IVP (19:50)
[2024-04-16] MEDS: cefTRIAXone 1,000 mg SDV 1000 MG IVP (19:59)
[2024-04-16 20:09] LABS: Influenza A NEGATIVE (Negative); Influenza B NEGATIVE (Negative); Respiratory Syncytial Virus Ce NEGATIVE (Negative); SARS-CoV-2 PCR NEGATIVE (Negative)
[2024-04-16] MEDS: acetaminophen 500 mg Tablet 1000 MG PO (21:07)
--- NOTE | 2024-04-16 21:50 | PM.HP ---
Providers/Chief Complaint Primary Care Provider: Donovan Sprague MD Chief Complaint: ams; fall History of Present Illness Flor Mcclellan is a 74 year old female vascular dementia, remote history of CVA, resident [facility], history of established coronary disease previous [place] intervention dyslipidemia hypertension intolerant of statins memory impairment, presented after sustaining a fall at the [facility]. Patient at baseline is not very active, as per the sister and [id number] at the bedside, she uses a walker, but she takes baby steps, at risk of falls, after her lunchtime she went to her room, around 1:10 PM she was found on the floor, there was some concern regarding garbled speech however, no such findings were identified in the ER, in the ER workup consistent with UTI, she has clinical signs of dehydration, dry mucous membrane, at the time of my evaluation patient is pleasant, oriented to herself, able to answer simple questions, she is experiencing low-grade fever, hemodynamically stable, I do not appreciate any focal deficit She does have significant rash around her perineal area, as per the [id number], she stays in her depends and stays very private and would not let nurses know if she needs change of her depends. No active signs of meningitis, patient is not septic, significant pyuria concern for pyelonephritis versus UTI Started patient on ceftriaxone patient had received significant mount of IV fluids Respiratory panel negative Goals of care discussed with medical power of contracts attorney: She is DNR Review of Systems Const: Reports: chills; Denies: fever(s) Eyes: Denies: change in vision ENMT: Denies: throat pain Card: Denies: chest pain Resp: Denies: dyspnea GI: Denies: nausea Medications/Allergies Home Medications ?Medication ?Instructions ?Recorded ?Confirmed ?Last Taken ?Type calcium 600 mg (as 1 tab PO DAILY 08/30/19 01/14/23 Unknown History carbonate)-vitamin D3 5 mcg (200 unit) tablet garlic 1,000 mg capsule 1,000 mg PO DAILY 03/04/20 01/14/23 Unknown History clopidogrel 75 mg tablet 75 mg PO QDAY #90 tabs 05/02/21 01/14/23 Unknown Rx acetaminophen 325 mg tablet 325 mg PO QID PRN Pain or temp 01/14/23 01/14/23 Unknown History (Tylenol) aluminum-mag hydroxide-simethicone 30 ml PO Q2H PRN Indigestion 01/14/23 01/14/23 Unknown History 200 mg-200 mg-20 mg/5 mL oral susp amlodipine 5 mg tablet 5 mg PO DAILY 01/14/23 01/14/23 Unknown History aspirin 81 mg tablet,delayed 81 mg PO DAILY 01/14/23 01/14/23 Unknown History release loperamide 2 mg tablet (Imodium 4 mg PO BID PRN Diarrhea 01/14/23 01/14/23 Unknown History A-D) magnesium oxide 400 mg PO DAILY 01/14/23 01/14/23 Unknown History metoprolol tartrate 25 mg tablet 50 mg PO DAILY 01/14/23 01/14/23 Unknown History multivitamin with iron 1 tab PO DAILY 01/14/23 01/14/23 Unknown History nitroglycerin 0.4 mg sublingual 0.4 mg sublingual Q5M PRN Chest 01/14/23 01/14/23 Unknown History tablet Pain ondansetron 4 mg disintegrating 4 mg PO Q8H PRN Nausea 01/14/23 01/14/23 Unknown History tablet Allergies Allergy/AdvReac Type Severity Reaction Status Date / Time simvastatin Allergy ADR-Fatigue Verified 01/14/23 10:23 d Sulfa (Sulfonamide Allergy rash all Verified 01/14/23 10:23 Antibiotics) over my body PFSH Acute PFSH: Medical History DJD (degenerative joint disease), lumbar CVA (cerebral vascular accident) ASHD (arteriosclerotic heart disease) Cardiomyopathy Myocardial infarction Dyslipidemia HTN (hypertension) Statin intolerance Surgical History S/P appendectomy S/P PTCA (percutaneous transluminal coronary angioplasty) Family History Father , AGE 67 Stroke Sister Myocardial infarction Status cardiac pacemaker Other CAD (coronary artery disease) Social History Smoking and tobacco/nicotine status: never used tobacco/nicotine Alcohol intake: never Substance/Drug Use: never Vitals/I&O/Wt Last Vital Signs Temp 98.9 F 04/16/24 21:41 Pulse 87 04/16/24 21:00 Resp 18 04/16/24 21:00 BP 119/68 04/16/24 21:00 Pulse Ox 95 04/16/24 21:00 04/16/24 04/16/24 04/16/24 07:59 14:59 22:59 Intake Total 1000 / 1000 Balance 1000 / 1000 Weight last 48 hrs Weight 63.503 kg Physical Exam Narrative: Pleasant and cooperative Clinical signs of dehydration GCS 15 S1, S2 Currently on room air Pleasant and oriented to herself Able to answer simple questions Abdomen soft Significant intertrigo's, diaper rash on perineal area Quezada catheter in place No active focal deficit Able to move her extremities Doing well on room air Urinary Catheter Management: Quezada: Cath Placed During This Visit: yes Reason for Continuing Indwelling Catheter: Accurate Measurement of Urinary Output in Critically Ill Patients Urinary Catheter Date of Insertion: 04/16/24 Data 04/16/24 19:01 04/16/24 19:01 Micro: Microbiology 04/16/24 18:57 Blood Culture - Preliminary Blood SPECIMEN COLLECTED 04/16/24 19:01 Blood Culture - Preliminary Blood SPECIMEN COLLECTED A&P Assessment and plan (1) Acute UTI: (2) Memory loss: (3) Fall: (4) DNR (do not resuscitate): Plan UTI Metabolic encephalopathy related to UTI Start ceftriaxone Patient received second amount of IV fluids She is not septic Patient able to answer simple questions No focal deficit Blood sugar normal Clinically very dehydrated At baseline she uses a walker, at risk of falls, takes baby step as per the [id number] at the bedside, wears depends, she is very reluctant to let nurses change her depends frequently, that is most likely the culprit for her UTI Perineal rash: Zinc oxide cream to be applied 3 times a day Quezada catheter was placed in the ER which should be removed in next 24 hours At baseline patient is able to answer simple questions, as per the family at the bedside she is back to her baseline, she has significant memory deficit, p.o. intake has been adequate at the [facility], no choking or aspiration, Check TSH, B12 Requested urine culture Goals of care discussed with medical power of contracts attorney: She is DNR Cardiac diet DVT prophylaxis: Lovenox Hypertension: Continue amlodipine, metoprolol PDMP PDMP Reviewed: Not Reviewed Attestations Medical Necessity Statement*: Anticipating discharge within 48 hours Diagnoses Acute UTI N39.0 Memory loss R41.3 Fall W19.XXXA DNR (do not resuscitate) Z66
[2024-04-16] MEDS: enoxaparin 40 mg/0.4 mL Syringe SUBCUT (23:29)
[2024-04-16] MEDS: clopidogrel 75 mg Tablet PO (23:29)
[2024-04-17] VITALS (12 sets, daily range): BP systolic 105–181; BP diastolic 54–96; PULSE 69–124; RESP 14–20; TEMP 36.4–39.5; O2SAT 91–94
[2024-04-17 00:15] LABS: Procalcitonin 0.29 ng/mL (0-0.5); Thyroid Stimulating Hormone 1.04 uIU/mL (0.27-4.20); Vitamin B12 338 pg/mL (232-1245)
[2024-04-17 03:10] LABS: Basophils % 0.4 %; Eosinophils % 0.5 %; Hematocrit 39.4 % (36-47); Lymphocytes # 1.9 10^3/uL (0.8-4.8); Lymphocytes % 23.3 %; Mean Corpuscular HGB Conc 33.5 g/dL (30-55); Mean Corpuscular Hemoglobin 29.7 pg (27-33); Mean Corpuscular Volume 88.5 fl (85-98); Mean Platelet Volume 10.1 fL (7.4-10.4); Monocytes # 1.2 10^3/uL (0.2-0.9); Monocytes % 14.1 %; Neutrophils # 5.12 10^3/uL (1.8-7.7); Neutrophils % 61.3 %; Nucleated Red Blood Cells % 0 %; Platelet Count 291 10^3/cmm (157-399); Red Blood Count 4.45 10^6/uL (3.85-5.65); White Blood Count 8.34 10^3/uL (3.29-11.43)
[2024-04-17 03:34] LABS: Anion Gap 13.8 (5-19); Blood Urea Nitrogen 19 mg/dL (8-23); Carbon Dioxide 25 mmol/L (22-29); Chloride 107 mmol/L (98-107); Sodium 143 mmol/L (136-145)
[2024-04-17 03:35] LABS: C Reactive Protein 24.4 mg/L (0.0-4.9); Calcium 8.9 mg/dL (8.5-10.5); Glucose 100 mg/dL (65-115); Osmolality Calculated 298 mOsm/kg (285-295); Phosphorus 3.6 mg/dL (2.5-4.5)
[2024-04-17 03:39] LABS: Potassium 2.8 mmol/L (3.5-5.1)
[2024-04-17] MEDS: potassium chloride premix 100 ML 26.25 MEQ IV (06:06)
[2024-04-17] MEDS: lidocaine 1% 10 ML INJ 5 ML IV (06:06)
--- NOTE | 2024-04-17 08:25 | US_ITS ---
WS: [id number] ULTRASOUND RENAL TECHNIQUE: Ultrasound examination of both kidneys. CLINICAL INFORMATION: elen COMPARISON: None. FINDINGS: RIGHT: Right kidney is normal in size and appearance. Echogenicity: Normal. Cortical thickness: 1.0 cm; Normal. Hydronephrosis: None. Perinephric fluid: None. Right kidney measures: 9.5 cm x 4.2 cm x 4.1 cm. LEFT: Left kidney is normal in size and appearance. Echogenicity: Normal. Cortical thickness: 1.0 cm; Normal. Hydronephrosis: None. Perinephric fluid: None. Left kidney measures: 9.7 cm x 4.9 cm x 4.7 cm. Normal visualized aorta. Quezada catheter. US/US renal BI* [id number] IMPRESSION: Normal renal ultrasound
--- NOTE | 2024-04-17 09:03 | PC.CHAP ---
Pastoral Care Encounter/Spiritual Assessment Type of Contact [] Declined director data analytics visit [] Patient/Family/Request visit [] Outpatient visit [] Follow-up visit [] Physician referral [] Code/Alert [x] Routine visit [] Staff referral [] Actively dying [x] Patient sleeping [x] Family support [] [] Out of room [] Palliative care [] [] Receiving care in room [] Pre-surgical visit [] Trauma [] Long length of stay [] ICU visit [] Other: Relational/Emotional Strength [] Patient feels connected with others/family/visitors/staff [] Distress [] Loneliness/isolation [] Abandonment Spirituality of Patient [x] Person of Christal [] Attends Lutheran of their Christal [x] Believes in Prayer [] Reads Bible or Episcopal materials [] There are Spiritual issues to be addressed Graphite Disk Assembler Interventions [x] Prayer [] Active listening [] Non-anxious presence [] Spiritual/emotional support [] Crisis/trauma care [] Spiritual counseling [] Bereavement support [] Provided bereavement packet [x] Provided Bible/devotional materials [] Provided toy/stuffed animal, coloring book to patient or family member [] Provided Communion [] Anointing/[place] [] Salvation [x] Completed spiritual assessment [] Other: Impact on Illness or Injury [] Angry [] Fearful [] Anxious [] Often cries [] Exhaustion [] Unable to work [] Unable to attend caodaism [] Unable to walk/stand [] Unable to read [] Unable to drive [] Unable to eat/drink [] Unable to sleep [] Unable to be with family [] Patient intubated [] Other: Summary Time spent with patient 10 min
[2024-04-17] MEDS: clopidogrel 75 mg Tablet PO (09:40)
[2024-04-17] MEDS: aspirin 81 mg EC Tablet PO (09:40)
[2024-04-17] MEDS: amlodipine 5 mg Tablet PO (09:43)
[2024-04-17] MEDS: sennosides-docusate Tablet 1 TAB PO (09:43)
[2024-04-17] MEDS: metoprolol tartrate 25 mg Tablet 50 MG PO (09:44)
--- NOTE | 2024-04-17 12:18 | P.PN_ITS ---
Subjective 2 Subjective: Patient was seen this morning, family member at bedside she is alert to person, not to place, not to time she can follow commands according to family member at bedside she lives at [facility] she has had a gradual decline over the last month, she is more bedbound, less ambulatory, her mentation is also declined she has frequent short-term memory loss, Vitals/I&O/Wt Last Vital Signs Temp 98.7 F 04/17/24 11:10 Pulse 82 04/17/24 11:52 Resp 20 H 04/17/24 11:52 BP 134/80 04/17/24 11:10 Pulse Ox 94 04/17/24 11:52 O2 Del Method Room Air 04/17/24 11:52 04/16/24 04/17/24 04/17/24 22:59 06:59 14:59 Intake Total 1000 / 1000 Output Total 500 / 500 Balance 1000 / 1000 -500 / 500 Weight last 48 hrs Weight 58.876 kg Weight 58.202 kg Weight 63.503 kg Physical Exam 2 Const: COMMON NORMALS: no acute distress ORIENTATION/CONSCIOUSNESS: Yes awake and Yes oriented to person; not oriented to place and not oriented to time OTHER: Requires frequent redirection, repeat questioning Resp: COMMON NORMALS: normal respiratory effort, No retractions, No use of accessory muscles and clear to auscultation bilaterally AUSCULTATION: clear to auscultation bilaterally Cardio: COMMON NORMALS: regular rate, regular rhythm, S1 normal heart sound present and S2 normal heart sound present RATE: regular rate RHYTHM: r egular rhythm HEART SOUNDS: S1 normal heart sound present and S2 normal heart sound present GI: COMMON NORMALS: Normal to inspection, nondistended, normoactive bowel sounds present and non-tender Extremity: COMMON NORMALS: no pedal edema Neuro: SENSORIUM/ORIENTATION: Yes oriented to person, No oriented to place and No oriented to time Urinary Catheter Management: Quezada: Cath Placed During This Visit: yes Reason for Continuing Indwelling Catheter: Other Urinary Catheter Date of Insertion: 04/16/24 Data 04/17/24 02:36 04/17/24 02:36 Micro: Microbiology 04/16/24 18:42 Urine Culture - Preliminary Urine Catheterized Gram Negative Rods 04/16/24 18:57 Blood Culture - Preliminary Blood SPECIMEN COLLECTED 04/16/24 19:01 Blood Culture - Preliminary Blood SPECIMEN COLLECTED A&P Assessment and plan (1) Acute UTI: (2) Memory loss: (3) Fall: (4) DNR (do not resuscitate): Plan Urinary tract infection With acute encephalopathy # With underlying dementia #With underlying generalized decline over the last month Continue Rocephin Renal artery ultrasound Perineal rash: Zinc oxide cream to be applied 3 times a day History of dementia Hypokalemia, receiving IV replacement Small left pleural effusion seen on checks x-ray, monitor Hypertension continue home medications DNR Cardiac diet DVT prophylaxis: Lovenox PDMP PDMP Reviewed: Not Reviewed Attestations 2 Medical Necessity Statement*: Patient requires hospitalization for acute encephalopathy related to UTI, requiring IV antibiotics Diagnoses Acute UTI N39.0 Memory loss R41.3 Fall W19.XXXA DNR (do not resuscitate) Z66
--- NOTE | 2024-04-17 15:55 | PC.NURSE ---
Dr. Purdy called and notified that patient's primary nurse is concerned about the way that patient is acting. Dr. Murray will come and see the patient at this time.
--- NOTE | 2024-04-17 16:00 | CTR_ITS ---
PROCEDURE INFORMATION: Exam: CT Head Without Contrast Exam date and time: 04/17/2024 4:08 PM Age: 74 years old Clinical indication: Stroke-like symptoms; Altered mental status/memory loss; Additional info: AMS, smacking of the lips TECHNIQUE: Imaging protocol: Computed tomography of the head without contrast. Radiation optimization: All CT scans at this facility use at least one of these dose optimization techniques: automated exposure control; mA and/or kV adjustment per patient size (includes targeted exams where dose is matched to clinical indication); or iterative reconstruction. Other technique: STROKE PROTOCOL was implemented. COMPARISON: CT head wo con* [id number] 04/16/2024 5:01 PM RADIATION DOSE METRICS: Total DLP (mGy-cm): 1997.94 FINDINGS: Brain: Prominent diffuse cerebral atrophy is noted. There is mild chronic periventricular white matter ischemic change. There is no evidence of mass effect, infarct or hemorrhage. Cerebral ventricles: No ventriculomegaly. No midline shift. Paranasal sinuses: Mucosal thickening involves every paranasal sinus. Mastoid air cells: Visualized mastoid air cells are well aerated. Bones: Unremarkable. No acute fracture. Soft tissues: Unremarkable. CT/CT head wo con* [id number] IMPRESSION: 1. No acute findings noted 2. Cerebral atrophy with chronic ischemic changes noted 3. Pansinusitis ASSESSMENT: ASPECTS ([place] Stroke Program Early CT Score) is 10.
--- NOTE | 2024-04-17 16:13 | PM.CCNAC ---
Critical Care Event Note The high probability of a clinically significant, sudden or life threatening deterioration of the patient's [] system(s) required my full and direct attention, intervention and personal management. The critical care time is as shown. This time is in addition to time spent performing any reported procedures but includes the following: [x] Data and vital sign review and interpretation [x] Patient assessment, examination and intervention [x] Documentation [x] Medication orders and management Critical Care Time Code activated: Yes Critical Care Time (min): 35 Additional information about critical care time: - I was called by nursing staff as patient was having lipsmacking behavior, garbled speech, concerns for CVA -Patient was seen -She is alert to person, not to place, to time she remains encephalopathic at times -However she can follow some commands she is able to raise both arms equal strength bilaterally -She does not follow commands to raise both her legs, but both are raised and fall to the gurney against gravity, the strength seems equal bilaterally at times when she tries to retract her legs -I cannot discern any facial droop -She is able to say her name, that is the most I was able to get out of her -Pulls are equal round reactive to light -She does have lipsmacking behaviors -At other times she is confused, ? I would say that her NIH stroke scale although difficult to assess given her diffuse encephalopathy, her underlying dementia, her history of CVA, history of vascular dementia is about 8 -She is currently having a fever 103.1 -Does have this repetitive lipsmacking behaviors -Nursing staff at bedside -She will be given a gram of IV Tylenol -Potential lipsmacking behaviors could be seizures -I think currently her mentation is likely reflective of septic encephalopathy related to UTI, her fever, with her underlying comorbidities -But nonetheless I will order a CT head -Broaden her antibiotic coverage to vancomycin, Zosyn -Spoke to neurology, Dr. Da Silva, will consult, for lipsmacking behavior, encephalopathy -CT head ordered, spoke to Xochilt anguiano, no evidence of acute stroke -Spoke to patient's daughter who is patient's guardian, tells me that she has been having lipsmacking behaviors for the last 6 months becoming more profound -She has had significant decline in the last month, both neurologic decline, also physical decline -Discussed our plans, I do not feel that she is having a stroke I think her mentation is likely her septic encephalopathy but it is very hard to appropriate assess her given her underlying UTI, her sepsis, fever, with underlying vascular dementia, history of CVA Coding Level of Care Code Acute Code for Jone Santiago
[2024-04-17] MEDS: acetaminophen 1,000 MG/100 ML PIGGYBACK 400 MG IV (16:30)
--- NOTE | 2024-04-17 16:42 | PC.NURSE ---
Dr. Murray notified of patient having a change in status. At 1545 Patient smacking lips and right hand shaking. Vitals were BP 181/96, HR 104, and Temp 103.1. Dr. Murray to floor to see the patient and ordered IV tylenol, Keppra and a stat Head CT. Dr. Da Silva consulted by Dr. Murray and came to see patient. Dr. Da Silva gave verbal orders to discontinue one time order for Keppra and toradol. Dr. Da Silva to speak with Dr. Murray.
--- NOTE | 2024-04-17 16:52 | PM.CONSULT ---
Providers/Reason For Consult Consulting Physician/Specialty*: Darin Matute MD neurology and epilepsy Reason for Consult*: Involuntary lipsmacking, tremors and stiffness, fever, and increased heart rate and blood pressure in patient with urosepsis and history of Zyprexa use in the long term care facility assess for neuroleptic malignant syndrome Attending Physician: Terell Murray MD Primary Care Provider: Donovan Sprague MD History of Present Illness History of Present Illness Flor Mcclellan is a 74 year old female with a history of severe anxiety. Patient treated with Zyprexa in the long term. According to the family the patient has been on Zyprexa for at least 6 months. The family stated the patient has been displaying lipsmacking approximately 6 months but symptoms have progressed in severity as well as shuffling gait for approximately 1 year which has progressed in severity and the patient has difficulty ambulating even from her bed to the bathroom secondary to shuffling gait and balance difficult. The patient presented to the [facility] emergency room secondary to reports of change in speech. Noncontrast head CT was obtained on 04/16/2024 and reported to be negative for acute findings. Patient was discovered to have urosepsis and was started on IV antibiotics. In view of the patient's continued symptoms of lipsmacking, stiffness of her body with temperature of 103 degrees ?F and increased heart rate of 104 and elevated blood pressure, neurology consult was obtained. Upon neurological assessment on 04/17/2024 the patient has alert. She is displaying oral automatisms suggestive of tar dive dyskinesia. Pupils 4 mm reactive to light. Patient able to tell me her name and follow commands. She had increased tone in her upper extremities and lower extremities bilaterally with rapid tremors involving the upper extremities right side greater than left. Plantar responses flexor bilaterally. There was no clonus. Deep tendon reflexes 3+ bilaterally. Repeat noncontrast head CT 04/17/2024: IMPRESSION: 1. No acute findings noted 2. Cerebral atrophy with chronic ischemic changes noted 3. Pansinusitis Drug allergies: Zocor which resulted in fatigue Sulfonamide antibiotics which resulted in generalized rash Current home medications at the long term facility: Zyprexa (Olanzapine) 5 mg p.o. daily Zofran (Ondansetron) 4 mg p.o. every 8 hours as needed for nausea BuSpar 75 mg p.o. twice daily Xanax 0.25 mg p.o. nightly Plavix 75 mg p.o. daily Aspirin 81 mg p.o. daily Tylenol 325 mg p.o. 4 times daily, as needed pain or temperature Mylanta 30 mL p.o. every 2 hours as needed for indigestion Norvasc 5 mg p.o. daily Bisacodyl 20 mg p.o. as needed constipation Bisacodyl 10 mg p.o. daily Calcium 600 mg with vitamin D3 5 mcg p.o. daily Lisinopril 20 mg p.o. twice daily Loperamide (Imodium A-D) 4 mg p.o. twice daily as needed for diarrhea Magnesium oxide 400 mg p.o. daily Metoprolol 50 mg p.o. daily Metoprolol 25 mg p.o. nightly Multivitamin with iron 1 p.o. daily Sublingual nitroglycerin 0.4 mg every 5 minutes as needed for chest pain Past medical history: DNR (DO NOT RESUSCITATE) Acute urinary tract infection Memory loss Cerebrovascular accident Coronary atherosclerotic heart disease Cardiomyopathy Myocardial infarction Status post PTCA (percutaneous transluminal coronary angioplasty) Hypertension Statin intolerance Dyslipidemia Sprain of the right ankle Fracture of the base of the fifth metatarsal bone right foot Habits: None Social history: The patient resides in a nursing care facility Review of Systems General: Reports: 10 or more systems reviewed and unremarkable except in HPI and below : Reports: other (Urinary tract infection) Neuro: Reports: confusion, behavioral changes and involuntary movements (Tremors and stiffness) Psych: Reports: anxiety (There is no reported history of the patient being homicidal or suicidal) Medications/Allergies Home Medications ?Medication ?Instructions ?Recorded ?Confirmed ?Last Taken ?Type calcium 600 mg (as 1 tab PO DAILY 08/30/19 04/17/24 Unknown History carbonate)-vitamin D3 5 mcg (200 unit) tablet clopidogrel 75 mg tablet 75 mg PO QDAY #90 tabs 05/02/21 04/17/24 Unknown Rx acetaminophen 325 mg tablet 325 mg PO QID PRN Pain or temp 01/14/23 04/17/24 Unknown History (Tylenol) aluminum-mag hydroxide-simethicone 30 ml PO Q2H PRN Indigestion 01/14/23 04/17/24 Unknown History 200 mg-200 mg-20 mg/5 mL oral susp amlodipine 5 mg tablet 5 mg PO DAILY 01/14/23 04/17/24 Unknown History aspirin 81 mg tablet,delayed 81 mg PO DAILY 01/14/23 04/17/24 Unknown History release loperamide 2 mg tablet (Imodium 4 mg PO BID PRN Diarrhea 01/14/23 04/17/24 Unknown History A-D) magnesium oxide 400 mg PO DAILY 01/14/23 04/17/24 Unknown History metoprolol tartrate 25 mg tablet 50 mg PO DAILY 01/14/23 04/17/24 Unknown History multivitamin with iron 1 tab PO DAILY 01/14/23 04/17/24 Unknown History nitroglycerin 0.4 mg sublingual 0.4 mg sublingual Q5M PRN Chest 01/14/23 04/17/24 Unknown History tablet Pain ondansetron 4 mg disintegrating 4 mg PO Q8H PRN Nausea 01/14/23 04/17/24 Unknown History tablet alprazolam 0.25 mg tablet 0.25 mg PO BEDTIME 04/17/24 04/17/24 Unknown History bisacodyl 10 mg rectal suppository 10 mg RI DAILY PRN Constipation 04/17/24 04/17/24 Unknown History bisacodyl 5 mg tablet 20 mg PO DAILY PRN Constipation 04/17/24 04/17/24 Unknown History buspirone 7.5 mg tablet 7.5 mg PO BID 04/17/24 04/17/24 Unknown History lisinopril 20 mg tablet 20 mg PO BID 04/17/24 04/17/24 Unknown History magnesium hydroxide 400 mg/5 mL 15 ml PO DAILY PRN Constipation 04/17/24 04/17/24 Unknown History oral suspension (Milk of Magnesia) metoprolol tartrate 25 mg tablet 25 mg PO BEDTIME 04/17/24 04/17/24 Unknown History olanzapine 5 mg tablet 5 mg PO DAILY 04/17/24 04/17/24 Unknown History polyethylene glycol 3350 17 gram 17 g PO DAILY PRN Constipation 04/17/24 04/17/24 Unknown History oral powder packet (Miralax) Allergies Allergy/AdvReac Type Severity Reaction Status Date / Time simvastatin Allergy ADR-Fatigue Verified 04/17/24 00:08 d Sulfa (Sulfonamide Allergy rash all Verified 04/17/24 00:08 Antibiotics) over my body Current Medications Generic Name Dose Route Start Last Admin Trade Name Teresa PRN Reason Stop Dose Admin Amlodipine Besylate 5 mg 04/17/24 09:00 04/17/24 09:43 Amlodipine 5 Mg Tablet PO 5 mg DAILY JEREMIAH Administration Aspirin 81 mg 04/17/24 09:00 04/17/24 09:40 Aspirin 81 Mg Ec Tablet PO 81 mg DAILY JEREMIAH Administration Clopidogrel Bisulfate 75 mg 04/16/24 22:33 04/17/24 09:40 Clopidogrel 75 Mg Tablet PO 75 mg DAILY JEREMIAH Administration Enoxaparin Sodium 40 mg 04/16/24 22:00 04/16/24 23:29 Enoxaparin 40 Mg/0.4 Ml Syringe SUBCUT 40 mg Q24H JEREMIAH Administration Metoprolol Tartrate 50 mg 04/17/24 09:00 04/17/24 09:44 Metoprolol Tartrate 25 Mg Tablet PO 50 mg DAILY JEREMIAH Administration Senna/Docusate Sodium 1 tab 04/17/24 09:00 04/17/24 09:43 Sennosides-Docusate Tablet PO 1 tab DAILY JEREMIAH Administration PFSH Acute PFSH: Medical History DJD (degenerative joint disease), lumbar CVA (cerebral vascular accident) ASHD (arteriosclerotic heart disease) Cardiomyopathy Myocardial infarction Dyslipidemia HTN (hypertension) Statin intolerance Surgical History S/P appendectomy S/P PTCA (percutaneous transluminal coronary angioplasty) Family History Father , AGE 67 Stroke Sister Myocardial infarction Status cardiac pacemaker Other CAD (coronary artery disease) Social History Smoking and tobacco/nicotine status: never used tobacco/nicotine Alcohol intake: never Substance/Drug Use: never Vitals/I&O/Wt Last Vital Signs Temp 98.7 F 04/17/24 11:10 Pulse 82 04/17/24 11:52 Resp 20 H 04/17/24 11:52 BP 134/80 04/17/24 11:10 Pulse Ox 94 04/17/24 11:52 O2 Del Method Room Air 04/17/24 11:52 04/17/24 04/17/24 04/17/24 06:59 14:59 22:59 Intake Total 120 / 120 Output Total 500 / 500 Balance -500 / 500 120 / 120 Weight last 48 hrs Weight 129 lb 12.8 oz Weight 128 lb 5 oz Weight 140 lb Physical Exam Narrative: Blood pressure 181/96 heart rate 104 temperature 103 ?F The patient is alert she is oriented to person. Patient's speech is clear. She follows commands. Patient displaying oral automatisms of her mouth suggestive of tardive dyskinesia. Pupils 4 mm round reactive light and accommodation. Extraocular movements intact. Motor testing grossly nonfocal patient does display rapid tremors involving the upper extremities right side greater than left and stiffness in the arms and legs. Deep tendon reflexes 3+ in upper and lower extremities plantar responses flexor bilaterally there is no clonus. Patient able to move toes and squeeze my hands to command. Throat clear. Lungs clear. Heart regular rhythm with increased rate. Extremities were negative for cyanosis. Urinary Catheter Management: Quezada: Cath Placed During This Visit: yes Reason for Continuing Indwelling Catheter: Other Urinary Catheter Date of Insertion: 04/16/24 Data 04/17/24 02:36 04/17/24 02:36 Micro: Microbiology 04/16/24 18:42 Urine Culture - Preliminary Urine Catheterized Gram Negative Rods 04/16/24 18:57 Blood Culture - Preliminary Blood SPECIMEN COLLECTED 04/16/24 19:01 Blood Culture - Preliminary Blood SPECIMEN COLLECTED A&P Assessment and plan (1) Neuroleptic malignant syndrome: Impression: 1. Possible neuroleptic malignant syndrome 2. Urinary tract infection suggestive of urosepsis 3. History of anxiety treated with Zyprexa, BuSpar and Xanax 4. 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 Recommend discontinuing Zyprexa 2. Recommend discontinuing Toradol since patient has history of heart disease and reported history of strokes 3. Recommend obtaining total CPK 4. Agree with continuing BuSpar and Xanax for anxiety 5. Consider antidepressant medications such as Lexapro, Zoloft, or Celexa if needed for anxiety/depression 6. Agree with obtaining speech path evaluation to assess swallow to minimize potential for aspiration 7. If temperature remains elevated would recommend using cooling blanket 8. If CPK is elevated recommend treating patient for possible neuroleptic malignant syndrome using 1 or more of the following medications: a) dantrolene 2 to 3 mg/kg to help reduce rigidity and hyperthermia b) bromocriptine 2.5 mg p.o. 3 times daily maximum 40 mg/day for muscle relaxant/rigidity and to reduce hyperthermia c) amantadine 100 mg p.o. twice daily to 3 times daily for muscle relaxant/rigidity and to reduce hyperthermia d) benzodiazepine such as Ativan 0.5 to 1 mg p.o. or IV every 6 hours as needed or Valium 2.5 to 5 mg p.o. or IV every 6 hours as needed for muscle rigidity and agitation to help with agitation and muscle rigidity 9. Continue to monitor vital signs and temperature 10. Minimize use of medications for nausea such as Zofran, Phenergan, or Reglan since these medications can also produce neuroleptic malignant syndrome or resulting in extrapyramidal side effects including parkinsonism and tardive dyskinesia (2) Altered mental status: (3) Tremors of nervous system: (4) Tardive dyskinesia: PDMP PDMP Reviewed: Not Reviewed Consult Attestations Medical Necessity Statement: The patient was evaluated by neurology for involuntary mouth movements, tremors and stiffness Coding Level of Care Code 33169 Diagnoses Neuroleptic malignant syndrome G21.0 Altered mental status R41.82 Tremors of nervous system R25.1 Tardive dyskinesia G24.01
[2024-04-17] MEDS: VANCOMYCIN ADD-Vantage 1,000 MG in 0.9% NaCl ADD-Vantage 250 ML 250 MG IV (17:10)
[2024-04-17 18:24] LABS: Troponin T (5th) Once 16 ng/L (0-10)
--- NOTE | 2024-04-17 18:36 | PC.NURSE ---
Notified Dr. Murray patient has temp of 102.[address] Murray gave onetime order of Motrin 600 mg PO
[2024-04-17] MEDS: piperacillin-tazobactam 3.375 GM in sodium chloride 0.9% (plus) 50 ML IV (18:45)
[2024-04-17] MEDS: ibuprofen 600 mg Tablet PO (18:53)
[2024-04-17 19:03] LABS: Creatine Phosphokinase 2506 U/L (26-192)
--- NOTE | 2024-04-17 21:27 | PHA.VACGOAL ---
Vancomycin Goal - Goal Vancomycin Goal:: 15-20 mg/L Vancomycin Indication:: Other (SEPSIS) - Therapy Current therapy:: Pip/Tazo Day of therpy:: Day []of [] . Actual body weight (kg): 58.876 kg - Data Labs: WBC 8.34 10^3/uL (3.29-11.43) 04/17/24 02:36 RBC 4.45 10^6/uL (3.85-5.65) 04/17/24 02:36 Hgb 13.20 g/dL (11.27-16.99) 04/17/24 02:36 Hct 39.4 % (36-47) 04/17/24 02:36 MCV 88.5 fl (85-98) 04/17/24 02:36 MCH 29.7 pg (27-33) 04/17/24 02:36 MCHC 33.5 g/dL (30-55) 04/17/24 02:36 RDW 13.0 % (12.1-15.1) 04/17/24 02:36 Sodium 143 mmol/L (136-145) 04/17/24 02:36 Potassium 2.8 mmol/L (3.5-5.1) L* 04/17/24 02:36 Chloride 107 mmol/L (98-107) 04/17/24 02:36 Carbon Dioxide 25 mmol/L (22-29) 04/17/24 02:36 Anion Gap 13.8 (5-19) 04/17/24 02:36 BUN 19 mg/dL (8-23) 04/17/24 02:36 Creatinine 0.7 mg/dL (0.5-0.9) 04/17/24 02:36 GFR Calculation Not Reportable 04/17/24 02:36 Treatment plan:: new consult Regimen:: New start vancomycin for Urosepsis. No prior Vancomycin history found. Patient given load dose of 1000 mg and started on maintenance dose of 500 mg q12h.
[2024-04-17] MEDS: enoxaparin 40 mg/0.4 mL Syringe SUBCUT (21:41)
[2024-04-18] MEDS: piperacillin-tazobactam 3.375 GM in sodium chloride 0.9% (plus) 50 ML IV ×2 (00:53→09:21)
[2024-04-18 03:50] VITALS: BP 116/68; PULSE 81; RESP 16; TEMP 36.9; O2SAT 94
[2024-04-18] MEDS: vancomycin 500 MG in sodium chloride 0.9% (plus) 100 ML 200 MG IV (04:27)
[2024-04-18 05:59] VITALS: PULSE 86
[2024-04-18 08:12] VITALS: BP 128/72; PULSE 85; RESP 16; TEMP 36.7; O2SAT 90
--- NOTE | 2024-04-18 08:40 | PM.PN ---
Subjective Subjective: History of present illness: Flor Mcclellan is a 74 year old female with a history of severe anxiety. Patient treated with Zyprexa in the half-way. According to the family the patient has been on Zyprexa for at least 6 months. The family stated the patient has been displaying lipsmacking approximately 6 months but symptoms have progressed in severity as well as shuffling gait for approximately 1 year which has progressed in severity and the patient has difficulty ambulating even from her bed to the bathroom secondary to shuffling gait and balance difficult. The patient presented to the [facility] emergency room secondary to reports of change in speech. Noncontrast head CT was obtained on 04/16/2024 and reported to be negative for acute findings. Patient was discovered to have urosepsis and was started on IV antibiotics. In view of the patient's continued symptoms of lipsmacking, stiffness of her body with temperature of 103 degrees ?F and increased heart rate of 104 and elevated blood pressure, neurology consult was obtained. Upon neurological assessment on 04/17/2024 the patient has alert. She is displaying oral automatisms suggestive of tar dive dyskinesia. Pupils 4 mm reactive to light. Patient able to tell me her name and follow commands. She had increased tone in her upper extremities and lower extremities bilaterally with rapid tremors involving the upper extremities right side greater than left. Plantar responses flexor bilaterally. There was no clonus. Deep tendon reflexes 3+ bilaterally. During the patient initial evaluation on 04/17/2024 I recommended discontinuing neuroleptic medication Zyprexa, and minimizing use of other medications that may potentially cause extrapyramidal symptoms such as antinausea medications like Zofran, Phenergan or Reglan as the patient's clinical picture was suggestive of neuroleptic malignant syndrome. On 04/17/2024 patient was scheduled for total CPK. This lab was elevated 2506 (normal equals 26-192). On 04/18/2024 the family member stated the patient's symptoms improved and she is less shaky and more aware of what is going on. The patient was without complaints this morning and was sitting in the chair next to her bed eating breakfast. Patient did not display any significant tremors and no tardive dyskinesia movements of her mouth were observed this morning. Repeat noncontrast head CT 04/17/2024: IMPRESSION: 1. No acute findings noted 2. Cerebral atrophy with chronic ischemic changes noted 3. Pansinusitis Drug allergies: Zocor which resulted in fatigue Sulfonamide antibiotics which resulted in generalized rash Current home medications at the half-way facility: Zyprexa (Olanzapine) 5 mg p.o. daily (discontinued on 04/17/2024 secondary to clinical picture suggestive of neuroleptic malignant syndrome and tar dive dyskinesia) Zofran (Ondansetron) 4 mg p.o. every 8 hours as needed for nausea BuSpar 75 mg p.o. twice daily Xanax 0.25 mg p.o. nightly Plavix 75 mg p.o. daily Aspirin 81 mg p.o. daily Tylenol 325 mg p.o. 4 times daily, as needed pain or temperature Mylanta 30 mL p.o. every 2 hours as needed for indigestion Norvasc 5 mg p.o. daily Bisacodyl 20 mg p.o. as needed constipation Bisacodyl 10 mg p.o. daily Calcium 600 mg with vitamin D3 5 mcg p.o. daily Lisinopril 20 mg p.o. twice daily Loperamide (Imodium A-D) 4 mg p.o. twice daily as needed for diarrhea Magnesium oxide 400 mg p.o. daily Metoprolol 50 mg p.o. daily Metoprolol 25 mg p.o. nightly Multivitamin with iron 1 p.o. daily Sublingual nitroglycerin 0.4 mg every 5 minutes as needed for chest pain Past medical history: DNR (DO NOT RESUSCITATE) Acute urinary tract infection Memory loss Cerebrovascular accident Coronary atherosclerotic heart disease Cardiomyopathy Myocardial infarction Status post PTCA (percutaneous transluminal coronary angioplasty) Hypertension Statin intolerance Dyslipidemia Sprain of the right ankle Fracture of the base of the fifth metatarsal bone right foot Habits: None Social history: The patient resides in a nursing care facility Review of Systems General: Reports: 10 or mor e systems reviewed and unremarkable except in HPI and below : Reports: other (Ur inary tract infect ion) Neuro: Reports: confusion , behavioral jalloh es and involuntary movements (Tremor s and stiffness) Psych: Reports: anxiety ( There is no report ed history of the patient being homi cidal or suicidal) Vitals/I&O/Wt Last Vital Signs Temp 98.0 F 04/18/24 08:12 Pulse 85 04/18/24 08:12 Resp 16 04/18/24 08:12 BP 128/72 04/18/24 08:12 Pulse Ox 90 04/18/24 08:12 O2 Del Method Room Air 04/18/24 08:12 04/17/24 04/18/24 04/18/24 22:59 06:59 14:59 Intake Total 500 / 620 150 / 770 Output Total 750 / 750 150 / 900 Balance -250 / -130 0 / -130 Weight last 48 hrs Weight 126 lb 12.8 oz Weight 129 lb 12.8 oz Weight 128 lb 5 oz Weight 140 lb Physical Exam Narrative: Blood pressure 128/72 heart rate 85 respiration 16 temperature 98 ?F O2 saturation 90% on room air The patient is sitting in the chair next to her bed eating breakfast. She is alert. Patient able to tell me her complete name. I did not observe any obvious tar dive dyskinesia movements of her mouth and no significant tremors in her extremities. Pupils 4 mm round reactive light and accommodation. Extraocular movements intact. I did not observe any obvious nystagmus. Motor testing grossly nonfocal. Throat clear. Lungs clear. Heart regular rhythm and rate. Extremities were negative for cyanosis. Urinary Catheter Management: Quezada: Cath Placed During This Visit: yes Reason for Continuing Indwelling Catheter: Accurate Measurement of Urinary Output in Critically Ill Patients Urinary Catheter Date of Insertion: 04/16/24 Data 04/17/24 02:36 04/17/24 02:36 Micro: Microbiology 04/16/24 18:57 Blood Culture - Preliminary Blood NEGATIVE TO DATE 04/16/24 19:01 Blood Culture - Preliminary Blood NEGATIVE TO DATE 04/17/24 17:45 Blood Culture - Preliminary Blood SPECIMEN COLLECTED 04/17/24 17:52 Blood Culture - Preliminary Blood SPECIMEN COLLECTED 04/16/24 18:42 Urine Culture - Preliminary Urine Catheterized Gram Negative Rods A&P Assessment and plan (1) Neuroleptic malignant syndrome: Impression: 1. Neuroleptic malignant syndrome, markedly improved mental status after discontinuing Zyprexa 2. Urinary tract infection suggestive of urosepsis 3. History of anxiety treated with Zyprexa, BuSpar and Xanax 4. 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 Elevated CPK 2506 (normal equals 26-192) most likely secondary to antipsychotic medication, Zyprexa which was discontinued on 04/17/2024 Plan: 1. Zyprexa discontinued on 04/17/2024 2. Recommend discontinuing Toradol since patient has history of heart disease and reported history of strokes 3. Agree with current treatment for urinary tract infection 4. Agree with continuing BuSpar and Xanax for anxiety 5. Consider antidepressant medications such as Lexapro, Zoloft, or Celexa or increased Xanax if needed for anxiety/depression 6. Agree with obtaining speech path evaluation to assess swallow to minimize potential for aspiration 7. Currently patient is afebrile but if temperature is again elevated would recommend using cooling blanket 8. Since the patient's mental status and tremors have improved after stopping Zyprexa even though CPK is elevated recommend holding off on using the medications below recommend for the treatment of neuroleptic malignant syndrome: a) dantrolene 2 to 3 mg/kg to help reduce rigidity and hyperthermia b) bromocriptine 2.5 mg p.o. 3 times daily maximum 40 mg/day for muscle relaxant/rigidity and to reduce hyperthermia c) amantadine 100 mg p.o. twice daily to 3 times daily for muscle relaxant/rigidity and to reduce hyperthermia d) benzodiazepine such as Ativan 0.5 to 1 mg p.o. or IV every 6 hours as needed or Valium 2.5 to 5 mg p.o. or IV every 6 hours as needed for muscle rigidity and agitation to help with agitation and muscle rigidity 9. Continue to monitor vital signs and temperature 10. Minimize use of medications for nausea such as Zofran, Phenergan, or Reglan since these medications can also produce neuroleptic malignant syndrome or resulting in extrapyramidal side effects including parkinsonism and tardive dyskinesia (2) Altered mental status: (3) Tremors of nervous system: (4) Tardive dyskinesia: PDMP PDMP Reviewed: Not Reviewed Attestations Medical Necessity Statement*: The patient was evaluated by neurology for findings suggestive of neuroleptic malignant syndrome Coding Level of Care Code 49631 Diagnoses Neuroleptic malignant syndrome G21.0 Altered mental status R41.82 Tremors of nervous system R25.1 Tardive dyskinesia G24.01
[2024-04-18] MEDS: clopidogrel 75 mg Tablet PO (09:20)
[2024-04-18] MEDS: sennosides-docusate Tablet 1 TAB PO (09:20)
[2024-04-18] MEDS: metoprolol tartrate 25 mg Tablet 50 MG PO (09:20)
[2024-04-18] MEDS: amlodipine 5 mg Tablet PO (09:20)
[2024-04-18] MEDS: aspirin 81 mg EC Tablet PO (09:21)
--- NOTE | 2024-04-18 09:28 | PC.CHAP ---
Pastoral Care Encounter/Spiritual Assessment Type of Contact [] Declined statistical analyst visit [] Patient/Family/Request visit [] Outpatient visit [] Follow-up visit [] Physician referral [] Code/Alert [x] Routine visit [] Staff referral [] Actively dying [] Patient sleeping [x] Family support [] [] Out of room [] Palliative care [] [] Receiving care in room [] Pre-surgical visit [] Trauma [] Long length of stay [] ICU visit [] Other: Relational/Emotional Strength [x] Patient feels connected with others/family/visitors/staff [] Distress [] Loneliness/isolation [] Abandonment Spirituality of Patient [x] Person of Christal [] Attends Synagogue of their Christal [x] Believes in Prayer [] Reads Bible or Mandaen materials [] There are Spiritual issues to be addressed Assistant Grocery Store Manager Interventions [x] Prayer [x] Active listening [x] Non-anxious presence [x] Spiritual/emotional support [] Crisis/trauma care [] Spiritual counseling [] Bereavement support [] Provided bereavement packet [] Provided Bible/devotional materials [] Provided toy/stuffed animal, coloring book to patient or family member [] Provided Communion [] Anointing/[place] [] Salvation [x] Completed spiritual assessment [] Other: Impact on Illness or Injury [] Angry [] Fearful [] Anxious [] Often cries [] Exhaustion [] Unable to work [] Unable to attend jehovah's witness [] Unable to walk/stand [] Unable to read [] Unable to drive [] Unable to eat/drink [] Unable to sleep [] Unable to be with family [] Patient intubated [] Other: Summary Time spent with patient 5 min
[2024-04-18 10:15] LABS: Anion Gap 14.4 (5-19); Blood Urea Nitrogen 20 mg/dL (8-23); Carbon Dioxide 23 mmol/L (22-29); Chloride 101 mmol/L (98-107); Creatinine Clr Calc Pharmacy 53.5488; Glucose 178 mg/dL (65-115); Osmolality Calculated 287 mOsm/kg (285-295); Potassium 3.4 mmol/L (3.5-5.1); Sodium 135 mmol/L (136-145)
[2024-04-18 10:55] VITALS: PULSE 105; RESP 18; O2SAT 98
--- NOTE | 2024-04-18 11:08 | PM.DCS ---
Discharge Providers Date of Admission: 04/17/24 10:44 Date of Discharge: April 18, 2024 Attending Provider at Admission: Belinda Puckett MD Attending Provider at Discharge: Richie Owen Primary Care Provider: Donovan Sprague MD Diagnoses at Discharge Discharge Diagnosis (1) Neuroleptic malignant syndrome: Status: Acute (2) Altered mental status: Status: Acute (3) Tremors of nervous system: Status: Acute (4) Tardive dyskinesia: Status: Acute Reason for Visit Reason for Visit: ams; fall Brief History: Flor Mcclellan is a 74 year old female vascular dementia, remote history of CVA, resident of group home, history of established coronary disease previous MO intervention dyslipidemia hypertension intolerant of statins memory impairment, presented after sustaining a fall at the group home. Patient at baseline is not very active, as per the sister and [id number] at the bedside, she uses a walker, but she takes baby steps, at risk of falls, after her lunchtime she went to her room, around 1:10 PM she was found on the floor, there was some concern regarding garbled speech however, no such findings were identified in the ER, in the ER workup consistent with UTI, she has clinical signs of dehydration, dry mucous membrane, at the time of my evaluation patient is pleasant, oriented to herself, able to answer simple questions, she is experiencing low-grade fever, hemodynamically stable, I do not appreciate any focal deficit She does have significant rash around her perineal area, as per the [id number], she stays in her depends and stays very private and would not let nurses know if she needs change of her depends. No active signs of meningitis, patient is not septic, significant pyuria concern for pyelonephritis versus UTI Started patient on ceftriaxone patient had received significant mount of IV fluids Respiratory panel negative Hospital Course Hospital Course She was admitted and started on treatment for suspected urinary tract infection, including IV antibiotic coverage with ceftriaxone, IV fluids, without sepsis on presentation. Febrile during hospitalization. Was additionally assessed by neurology. With history of Zyprexa, with symptoms of lipsmacking, progressive in severity shuffling gait, balance difficulties, neurologic assessment with concern for possible progression to neuroleptic malignant syndrome, recommendation was to discontinue antipsychotic. Olanzapine has been held. She was found to have moderate rhabdomyolysis with CK elevation up to 2506. However, with conservative management mental status that improved, she is awake and alert, lucid, back to baseline. Fevers resolved. CT head was unremarkable with some stable paranasal sinus disease. Please follow-up with regards to sinusitis. She is continuing on treatment for urinary tract infection. Urine culture growing more than 100,000 gram-negative rods. Now updated culture looks to be notified as Proteus mirabilis with resistance to quinolones. Renal ultrasound was normal. Continue overall goals of care discussions. Physical Exam Narrative: Accompanied by family. Const: COMMON NORMALS: alert GENERAL APPEARANCE: cooperative ORIENTATION/CONSCIOUSNESS: Yes awake OTHER: Pleasant, conversant. Denies pain or discomfort but has been better . HENMT: COMMON NORMALS: oropharynx normal Neck/C-Spine: COMMON NORMALS: no JVD Resp: COMMON NORMALS: normal respiratory effort and clear to auscultation bilaterally AUSCULTATION: clear to auscultation bilaterally Cardio: COMMON NORMALS: no JVD, regular rhythm, S1 normal heart sound present, S2 normal heart sound present and No murmurs present (Cardio) RHYTHM: regular rhythm HEART SOUNDS: S1 normal heart sound present and S2 normal heart sound present GI: COMMON NORMALS: Normal to inspection, nondistended, normoactive bowel sounds present, Soft to palpation and non-tender PALPATION: Yes Soft to palpation Extremity: COMMON NORMALS: no joint enlargement and no pedal edema Neuro: COMMON NORMALS: moves all extremities SENSORIUM/ORIENTATION: Yes alert Skin: COMMON NORMALS: no rashes or lesions noted GENERAL SKIN EXAM: no rashes or lesions noted Urinary Catheter Management: Quezada: Cath Placed During This Visit: yes Reason for Continuing Indwelling Catheter: Accurate Measurement of Urinary Output in Critically Ill Patients Urinary Catheter Date of Insertion: 04/16/24 Discharge Data Studies Completed and Pending Completed Studies During Hospitalization Category Date Time Status CT cervical spin wo con* [id number] Urgent Cat Scan 04/16/24 17:[address] head wo con* [id number] Stat Cat Scan 04/16/24 17:[address] head wo con* [id number] Stat Cat Scan 04/17/24 16:00 Completed XR chest 1V portable [id number] Stat Exams 04/16/24 17:37 Completed US renal BI* [id number] Routine Ultrasound 04/17/24 08:25 Completed Pending at discharge Category Date Time Status Blood Culture Stat Lab 04/16/24 18:57 Results Blood Culture Stat Lab 04/17/24 17:45 Results Sputum Culture and Gram Stain Stat Lab 04/17/24 16:01 Uncollected Radiology Impressions Chest X-Ray 04/16/24 17:37 IMPRESSION: Small left pleural effusion with mild left basilar airspace disease which may represent pneumonitis and or volume loss. Cervical Spine CT 04/16/24 17:39 IMPRESSION: No evidence of acute fracture. Renal Ultrasound 04/17/24 08:25 IMPRESSION: Normal renal ultrasound Head CT 04/17/24 16:00 IMPRESSION: 1. No acute findings noted 2. Cerebral atrophy with chronic ischemic changes noted 3. Pansinusitis ASSESSMENT: ASPECTS ([place] Stroke Program Early CT Score) is 10. ADDENDUM: 04/17/24 1640 COMMENT: THIS REPORT CONTAINS FINDINGS THAT MAY BE CRITICAL TO PATIENT CARE. The exam findings were verbally communicated by me to PRABHA BRAXTON via telephone conference at 4:38 PM CDT on 04/17/2024. The findings were acknowledged and understood. Laboratory Results WBC 8.34 10^3/uL (3.29-11.43) 04/17/24 02:36 RBC 4.45 10^6/uL (3.85-5.65) 04/17/24 02:36 Hgb 13.20 g/dL (11.27-16.99) 04/17/24 02:36 Hct 39.4 % (36-47) 04/17/24 02:36 MCV 88.5 fl (85-98) 04/17/24 02:36 MCH 29.7 pg (27-33) 04/17/24 02:36 MCHC 33.5 g/dL (30-55) 04/17/24 02:36 RDW 13.0 % (12.1-15.1) 04/17/24 02:36 Plt Count 291 10^3/cmm (157-399) 04/17/24 02:36 MPV 10.1 fL (7.4-10.4) 04/17/24 02:36 Neut % (Auto) 61.3 % 04/17/24 02:36 Lymph % (Auto) 23.3 % 04/17/24 02:36 [place] % (Auto) 14.1 % 04/17/24 02:36 Eos % (Auto) 0.5 % 04/17/24 02:36 Baso % (Auto) 0.4 % 04/17/24 02:36 Neut # (Auto) 5.12 10^3/uL (1.8-7.7) 04/17/24 02:36 Lymph # (Auto) 1.9 10^3/uL (0.8-4.8) 04/17/24 02:36 [place] # (Auto) 1.2 10^3/uL (0.2-0.9) H 04/17/24 02:36 Eos # (Auto) 0.0 10^3/uL (0.0-0.8) 04/17/24 02:36 Baso # (Auto) 0.0 10^3/uL (0.0-0.1) 04/17/24 02:36 Nucleated RBC % (auto) 0 % 04/17/24 02:36 Nucleated RBCs # 0.0 /100WBC 04/17/24 02:36 Sodium 135 mmol/L (136-145) L 04/18/24 09:42 Potassium 3.4 mmol/L (3.5-5.1) L 04/18/24 09:42 Chloride 101 mmol/L (98-107) 04/18/24 09:42 Carbon Dioxide 23 mmol/L (22-29) 04/18/24 09:42 Anion Gap 14.4 (5-19) 04/18/24 09:42 BUN 20 mg/dL (8-23) 04/18/24 09:42 Creatinine 0.8 mg/dL (0.5-0.9) 04/18/24 09:42 GFR Calculation Not Reportable 04/18/24 09:42 Glucose 178 mg/dL (65-115) H 04/18/24 09:42 Calculated Osmolality 287 mOsm/kg (285-295) 04/18/24 09:42 Lactic Acid 1.7 mmol/L (0.5-2.2) 04/16/24 19:01 Calcium 9.0 mg/dL (8.5-10.5) 04/18/24 09:42 Phosphorus 3.6 mg/dL (2.5-4.5) 04/17/24 02:36 Magnesium 2.0 mg/dL (1.7-2.3) 04/17/24 02:36 Total Bilirubin 0.3 mg/dL (0.15-1.2) 04/16/24 19:01 AST 72 U/L (0-32) H 04/16/24 19:01 ALT 23 U/L (0-33) 04/16/24 19:01 Alkaline Phosphatase 66 U/L (35-105) 04/16/24 19:01 Creatine Kinase 2506 U/L (26-192) H* 04/17/24 17:45 Troponin T 5th Gen ng/L 16 ng/L (0-10) H 04/17/24 17:45 C-Reactive Protein 24.4 mg/L (0.0-4.9) H 04/17/24 02:36 Total Protein 6.2 g/dL (6.6-8.7) L 04/16/24 19:01 Albumin 3.5 g/dL (3.5-5.2) 04/16/24 19: Globulin 2.7 g/dL (1.3-4.6) 04/16/24 19:01 Vitamin B12 338 pg/mL (232-1245) 04/16/24 19:01 Procalcitonin 0.29 ng/mL (0-0.5) 04/16/24 19:01 TSH 1.04 uIU/mL (0.27-4.20) 04/16/24 19:01 Urine Color Yellow (Yellow) 04/16/24 18:42 Urine Appearance Turbid (CLEAR) A 04/16/24 18:42 Urine pH 7.0 (5-7) 04/16/24 18:42 Ur Specific [place] 1.022 (1.005-1.030) 04/16/24 18:42 Urine Protein 2+ (Negative) A 04/16/24 18:42 Urine Glucose (UA) Negative (Normal) 04/16/24 18:42 Urine Ketones Trace (Negative) 04/16/24 18:42 Urine Blood 3+ (Negative) A 04/16/24 18:42 Urine Nitrate Negative (Negative) 04/16/24 18:42 Urine Bilirubin Negative (Negative) 04/16/24 18:42 Urine Urobilinogen 1.0 mg/dL (Negative) 04/16/24 18:42 Ur Leukocyte Esterase 2+ (Negative) A 04/16/24 18:42 Urine RBC 11-20 /hpf (0-2) H 04/16/24 18:42 Urine WBC >100 /hpf (0-5) H 04/16/24 18:42 Ur Squamous Epith Cells 10-15 /hpf (0-5) H 04/16/24 18:42 Amorphous Sediment Not Reportable 04/16/24 18:42 Urine Bacteria 4+ /hpf (NONE) H 04/16/24 18:42 Hyaline Casts 45.50 /lpf 04/16/24 18:42 Influenza A (PCR) Negative (Negative) 04/16/24 19: Influenza Type B (PCR) Negative (Negative) 04/16/24 19: RSV (PCR) Negative (Negative) 04/16/24: SARS-CoV-2 (PCR) Negative (Negative) 04/16/24 19: Vitals Last Vital Signs Temp 98.0 F 04/18/24 08:12 Pulse 105 H 04/18/24 10:55 Resp 18 04/18/24 10:55 BP 128/72 04/18/24 08:12 Pulse Ox 98 04/18/24 10:55 O2 Del Method Room Air 04/18/24 10:55 Discharge Plan Discharge Patient Disposition: Xfer SNF Condition: Stable Prescriptions: New cefdinir 300 mg capsule 300 mg PO BID 7 Days Qty: 14 0RF Continued calcium carbonate-vitamin D3 600 mg(1,500mg) -200 unit tablet 1 tab PO DAILY clopidogrel 75 mg tablet 75 mg PO QDAY Qty: 90 3RF acetaminophen [Tylenol] 325 mg Tablet 325 mg PO QID PRN (Reason: Pain or temp) loperamide [Imodium A-D] 2 mg Tablet 4 mg PO BID PRN (Reason: Diarrhea) Rx Instructions: administer after each loose stool until symptoms controlled; do not exceed 8 mg per 24 hrs amlodipine 5 mg tablet 5 mg PO DAILY aspirin [Aspir-81] 81 mg Tablet,Delayed Release (Dr/Ec) 81 mg PO DAILY nitroglycerin 0.4 mg Tablet, Sublingual 0.4 mg SUBLINGUAL Q5M PRN (Reason: Chest Pain) Rx Instructions: do not exceed 3 doses per episode alum-mag hydroxide-simeth [Mylanta] 200-200-20 mg/5 mL Suspension 30 ml PO Q2H PRN (Reason: Indigestion) Rx Instructions: administer between meals and at bedtime ondansetron 4 mg Tablet,Disintegrating 4 mg PO Q8H PRN (Reason: Nausea) multivitamin with iron Tablet 1 tab PO DAILY magnesium oxide 400 mg magnesium Tablet 400 mg PO DAILY metoprolol tartrate 25 mg tablet 50 mg PO DAILY lisinopril 20 mg tablet 20 mg PO BID buspirone 7.5 mg tablet 7.5 mg PO BID metoprolol tartrate 25 mg tablet 25 mg PO BEDTIME polyethylene glycol 3350 [Miralax] 17 gram Powder In Packet 17 g PO DAILY PRN (Reason: Constipation) alprazolam 0.25 mg tablet 0.25 mg PO BEDTIME magnesium hydroxide [Milk of Magnesia] 400 mg/5 mL Suspension 15 ml PO DAILY PRN (Reason: Constipation) bisacodyl 10 mg Suppository 10 mg CO DAILY PRN (Reason: Constipation) bisacodyl 5 mg Tablet 20 mg PO DAILY PRN (Reason: Constipation) Discontinued olanzapine 5 mg tablet 5 mg PO DAILY Discharge Orders: Discharge Order (Routine); Ordered 04/18/24 Ordered By: Richie Owen Referrals: William Reinoso [Referring] - 4-7 days Discharge Diet: Cardiac Discharge Activity: As per PT/OT instructions Activity Restrictions/Additional Instructions: Complete antibiotic and follow-up with referring provider for reassessment of urinary tract infection, follow-up on final urine culture. Discontinue Zyprexa. Lexapro, Zoloft or Celexa may be considered if needed for anxiety/depression. Continue aspiration precautions. Discharge Attestations Time Spent in Discharge Care*: greater than 30 min Quality Metrics Clinical Quality Measures [ No reported AMI, CVA or VTE this stay] Coding Level of Care Code 76095 Total time (in minutes) for Discharge: 40 Diagnoses Neuroleptic malignant syndrome G21.0 Altered mental status R41.82 Tremors of nervous system R25.1 Tardive dyskinesia G24.01
[2024-04-18 11:38] VITALS: BP 138/73; PULSE 80; RESP 16; TEMP 37.3; O2SAT 93
--- NOTE | 2024-04-18 13:12 | PC.NURSE ---
This nurse called report at 1300 to Zoey at [facility]. Their facility is transporting pt and expected to be here around 1400 to pick pt up.
[2024-04-18 14:12] VITALS: BP 138/73; PULSE 80; O2SAT 93
== END 2024-04-18 14:53 | disposition skilled nursing facility (03) | DRG 689 ==
LOC: ER 22:14 → MEDSURG 22:51
PROVIDERS: Emergency Medicine; Family Medicine; Admitting Provider Internal Medicine; Emergency Provider Emergency Medicine; PCP Family Medicine; Visit Provider Internal Medicine
DX: N39.0 Urinary tract infection, site not specified (principal); G21.0 Malignant neuroleptic syndrome; G93.41 Metabolic encephalopathy; M62.82 Rhabdomyolysis; I42.9 Cardiomyopathy, unspecified; W18.30XA Fall on same level, unspecified, initial encounter; Y92.128 Other place in nursing home as the place of occurrence of the external cause; T43.595A Adverse effect of other antipsychotics and neuroleptics, initial encounter; F01.50 Vascular dementia, unspecified severity, without behavioral disturbance, psychotic disturbance, mood disturbance, and anxiety; G24.01 Drug induced subacute dyskinesia; Z86.73 Personal history of transient ischemic attack (TIA), and cerebral infarction without residual deficits; I25.10 Atherosclerotic heart disease of native coronary artery without angina pectoris; Z95.5 Presence of coronary angioplasty implant and graft; I25.2 Old myocardial infarction; E78.5 Hyperlipidemia, unspecified; I10 Essential (primary) hypertension; E86.0 Dehydration; B96.4 Proteus (mirabilis) (morganii) as the cause of diseases classified elsewhere; F41.9 Anxiety disorder, unspecified; Z74.01 Bed confinement status; Z66 Do not resuscitate; Z79.82 Long term (current) use of aspirin; Z79.02 Long term (current) use of antithrombotics/antiplatelets
CPT/HCPCS: 36415; 51702; 70450; 71045; 72125; 76770; 80048; 80053; 81001; 82550; 82607; 83605; 83735; 84100; 84145; 84443; 84484; 85025; 86140; 87040; 87077; 87086; 87186; 87637; 93005; 96372; 97161; 97530; G0378; J0131; J0696; J1650; J1885; J2543; J3370; J3480; J7030; J7050; J9999